=== PATIENT | female | born 1950 | race Caucasian/White ===

== ENCOUNTER 2018-08-19 15:55 | Outpatient (REF) | payer MEDICARE, MEDICAID, SELFPAY | END 2018-08-19 16:15 | LOC: NCHCN 15:55 | PROVIDERS: PCP Family Medicine; Visit Provider Physician Assistant Medical | DX: N39.0 Urinary tract infection, site not specified (principal) | CPT/HCPCS: 87077; 87086; 87186 ==

== ENCOUNTER 2018-09-16 14:46 | Outpatient (REF) | payer MEDICARE, MEDICAID, SELFPAY | END 2018-09-16 15:06 | LOC: NCHCN 14:46 | PROVIDERS: PCP Family Medicine; Visit Provider Physician Assistant Medical | DX: L02.92 Furuncle, unspecified (principal) | CPT/HCPCS: 87077; 87070; 87186; 87205 ==

== ENCOUNTER 2018-10-10 13:16 | Outpatient (REF) | payer MEDICARE, MEDICAID, SELFPAY ==
[2018-10-10 20:25] LABS: Anion Gap 7.7 mmol/L (3-11); BUN 13 mg/dL (7-18); CO2 28.3 mmol/L (21.0-32.0); CREATININE 0.67 mg/dL (0.55-1.02); Calcium 8.9 mg/dL (8.5-10.1); Chloride 103 mmol/L (98-107); Glucose 88 mg/dL (70-100); Potassium 4.4 mmol/L (3.5-5.1); Sodium 139 mmol/L (136-145)
== END 2018-10-10 13:36 ==
LOC: NCHCN 13:16
PROVIDERS: PCP Family Medicine; Visit Provider Physician Assistant Medical
DX: E03.9 Hypothyroidism, unspecified (principal); I10 Essential (primary) hypertension; R53.83 Other fatigue
CPT/HCPCS: 80048; 84443

== ENCOUNTER 2019-12-15 15:48 | Outpatient (CLI) | payer OTHER, SELFPAY ==
--- NOTE | 2019-12-15 | DI.RAD_ITS ---
EXAM: XR SHOULDER RT COMPLETE 2+V CLINICAL HISTORY: RT SHOULDER PAIN M25.511. TECHNIQUE: 2D digital imaging was performed. COMPARISON: No exams were available for comparison FINDINGS: Mild hypertrophic changes are seen at the acromioclavicular joint and the greater tuberosity. The gl enohumeral joint is well maintained. The bones are intact and normally mineralized. The soft tissue s are unremarkable. IMPRESSION: Degenerative changes of the right shoulder. DATA REPOSITORY: RADIATION DOSE DELIVERED:
== END 2019-12-15 16:08 ==
PROVIDERS: PCP Family Medicine; Visit Provider Physician Assistant Medical
DX: M25.511 Pain in right shoulder (principal); M19.011 Primary osteoarthritis, right shoulder
CPT/HCPCS: 73030

== ENCOUNTER 2020-01-26 11:12 | Outpatient (CLI) | payer OTHER, SELFPAY ==
--- NOTE | 2020-01-26 11:00 | DI.RAD_ITS ---
EXAM: XR SHOULDER RT 1V CLINICAL HISTORY: right shoulder pain. TECHNIQUE: 2D digital imaging was performed. COMPARISON: CR XR SHOULDER RT COMPLETE 2+V from 12/15/2019 FINDINGS: Single frontal view of the right shoulder was obtained. Comparison is 12/15/2019. There has been no change in alignment of the shoulder. Stable degenerative changes are seen at the acromioclavicular j oint and glenohumeral joint. Soft tissues are grossly unremarkable. IMPRESSION: Limited examination of the right shoulder. No gross abnormality. DATA REPOSITORY: RADIATION DOSE DELIVERED:
== END 2020-01-26 11:32 ==
PROVIDERS: PCP Family Medicine; Referring Provider Physician Assistant Medical; Visit Provider Student in an Organized Health Care Education/Training Program
DX: M25.511 Pain in right shoulder (principal); M75.01 Adhesive capsulitis of right shoulder; M75.51 Bursitis of right shoulder
CPT/HCPCS: 99203; 73020

== ENCOUNTER 2020-02-03 01:40 | Outpatient (CLI) | payer OTHER, SELFPAY ==
--- NOTE | 2020-02-03 06:15 | DI.MRI_ITS ---
EXAM: MR UPPER JOINT RT WO CLINICAL HISTORY: Profound weakness loss AROM,BURSITIS,ADHESIVE CAPSULITIS,TENDONITIS,. TECHNIQUE: Multiplanar multisequence MRI was performed. COMPARISON: December 04 plain films. FINDINGS: The exam is mildly limited by patient motion. Bones:There is no fracture or contusion pattern. The AC joint shows hypertrophic changes with apparen t mild impingement on the supraspinatus muscle. There is no significant muscle atrophy. There is flu id in the subacromial, subcoracoid bursa. Rotator Cuff: There is a full-thickness tear seen of the supraspinatus tendon with slight retraction of the anterio r portion. Infraspinatus tendon shows mild edema but no focal tear.. The subscapularis and teres mi nor are normal. The biceps tendon is intact. There are degenerative changes of the glenoid, greatest antro inferiorly where there are several small subchondral cysts. No gross labral tear is seen. IMPRESSION: Full-thickness tear of the supraspinatus tendon with mild retraction. Infra spinatus tendonitis. DATA REPOSITORY:
== END 2020-02-03 02:00 ==
PROVIDERS: PCP Family Medicine; Visit Provider Student in an Organized Health Care Education/Training Program
DX: M75.81 Other shoulder lesions, right shoulder (principal); M75.101 Unspecified rotator cuff tear or rupture of right shoulder, not specified as traumatic
CPT/HCPCS: 73221

== ENCOUNTER 2020-02-17 14:29 | Outpatient (CLI) | payer OTHER, SELFPAY ==
--- NOTE | 2020-02-17 14:32 | DI.RAD_ITS ---
EXAM: XR CERVICAL SP BARKER TRAUMA 2-3V CLINICAL HISTORY: right shoulder pain. TECHNIQUE: 2D digital imaging was performed. COMPARISON: No exams were available for comparison FINDINGS: This is a limited examination with only AP and lateral views obtained. There is straightening of the normal cervical lordosis. Disc fusion is seen at C3-C4. Anterior cervical disc fusion is seen from C5 through T1. Degenerative changes of the facets are seen particularly on the left at C2-C3. No a cute fracture or subluxation is identified. The prevertebral soft tissues are unremarkable. IMPRESSION: 1. Postsurgical changes in the cervical spine. 2. Degenerative changes in the cervical spine. DATA REPOSITORY: RADIATION DOSE DELIVERED:
== END 2020-02-17 14:49 ==
PROVIDERS: PCP Family Medicine; Referring Provider Family Medicine; Visit Provider Student in an Organized Health Care Education/Training Program
DX: M47.812 Spondylosis without myelopathy or radiculopathy, cervical region (principal); Z98.890 Other specified postprocedural states; M75.51 Bursitis of right shoulder; M75.101 Unspecified rotator cuff tear or rupture of right shoulder, not specified as traumatic; M75.21 Bicipital tendinitis, right shoulder; M47.12 Other spondylosis with myelopathy, cervical region
CPT/HCPCS: 99214; 72040

== ENCOUNTER 2020-03-11 04:00 | Outpatient (CLI) | payer OTHER, SELFPAY ==
--- NOTE | 2020-03-11 07:45 | DI.MRI_ITS ---
EXAM: MR CERVICAL SPINE WO CLINICAL HISTORY: Failed conservative measures progressive myelopathY,M47.12, recent fall TECHNIQUE: Multiplanar multisequence MRI of the cervical spine was performed without intravenous con trast. COMPARISON: MR MRI - CERVICAL SPINE WO CONT from 01/10/2016 CR XR CERVICAL SP BARKER TRAUMA 2-3V from 02/17/2020 FINDINGS: Fusion hardware is seen at the C3-4 level as well as from the C5 through T1 levels. The cord signal i s normal. C2-3 level shows facet joint degenerative changes on the left. There is no disc bulging. The C3-4 lev el shows anterior fusion hardware. There is no significant narrowing of the central canal. At C4-5, there are disc osteophytes projecting circumferentially causing narrowing of the AP dimensio n of the central canal as well as bilateral neural foraminal narrowing, right greater than left. The AP dimension of the canal is reduced to 6 millimeters. At the C5-6 level, there are osteophytes projecting toward the left, also causing significant narrowi ng of the AP dimension of the canal and severe left neural foraminal narrowing. At C6-7, there are osteophytes causing left neural foraminal narrowing but no significant narrowing o f the central canal. There is mild neural foraminal narrowing at C7-T1. There are osteophytes and mild disc bulging at T1- 2 but no significant narrowing of the central canal. There is mild bilateral neural foraminal narrowi ng. IMPRESSION: Severe degenerative disc changes at C 4-5 causing narrowing of the central spinal canal as well as bi lateral neural foramen. Postsurgical changes and degenerative changes are noted at the remaining leve ls. DATA REPOSITORY:
== END 2020-03-11 04:20 ==
PROVIDERS: PCP Family Medicine; Visit Provider Student in an Organized Health Care Education/Training Program
DX: M47.12 Other spondylosis with myelopathy, cervical region (principal)
CPT/HCPCS: 72141

== ENCOUNTER → 2020-03-30 09:49 | Outpatient (BNVA) | payer OTHER, SELFPAY | PROVIDERS: PCP Family Medicine; Referring Provider Family Medicine; Visit Provider Student in an Organized Health Care Education/Training Program | DX: M19.011 Primary osteoarthritis, right shoulder (principal); M47.12 Other spondylosis with myelopathy, cervical region; M75.21 Bicipital tendinitis, right shoulder; M75.101 Unspecified rotator cuff tear or rupture of right shoulder, not specified as traumatic; M75.51 Bursitis of right shoulder | CPT/HCPCS: 99214 ==

== ENCOUNTER → 2020-04-05 13:39 | Outpatient (BNVA) | payer OTHER, SELFPAY | PROVIDERS: PCP Family Medicine; Referring Provider Student in an Organized Health Care Education/Training Program; Visit Provider Psychiatry & Neurology Neurology | DX: M19.011 Primary osteoarthritis, right shoulder (principal); M47.12 Other spondylosis with myelopathy, cervical region; G56.01 Carpal tunnel syndrome, right upper limb; S46.011A Strain of muscle(s) and tendon(s) of the rotator cuff of right shoulder, initial encounter; W19.XXXA Unspecified fall, initial encounter; G56.21 Lesion of ulnar nerve, right upper limb | CPT/HCPCS: 95886; 95909; 99204; 99215 ==

== ENCOUNTER 2020-04-18 07:29 | Outpatient (CLI) | payer OTHER, SELFPAY ==
[2020-04-19 15:32] LABS: SARS-CoV-2 RNA Not Detected (NotDetected); SARS-CoV-2 RNA Source Nasal/Nares
== END 2020-04-18 07:49 ==
PROVIDERS: PCP Family Medicine; Visit Provider Student in an Organized Health Care Education/Training Program
DX: Z01.818 Encounter for other preprocedural examination (principal); Z11.59 Encounter for screening for other viral diseases; M75.21 Bicipital tendinitis, right shoulder; M75.101 Unspecified rotator cuff tear or rupture of right shoulder, not specified as traumatic; M75.51 Bursitis of right shoulder
CPT/HCPCS: U0003

== ENCOUNTER 2020-04-21 09:50 | Day surgery (SDC) | payer OTHER, SELFPAY ==
[2020-04-21] VITALS (11 sets, daily range): BP systolic 100–145; BP diastolic 44–96; PULSE 61–96; RESP 15–25; TEMP 36.2–36.8; O2SAT 94–100
[2020-04-21] MEDS: Lactated Ringers 1,000 ML 100 ML IV (11:04)
[2020-04-21] MEDS: ceFAZolin 2 GM/50 ML BAG IVPB (14:15)
[2020-04-21] MEDS: EPINEPHrine 30 MG/30 ML VIAL (16:40)
--- NOTE | 2020-04-21 16:43 | PDOC.DSDIS_ITS ---
Discharge Plan Disposition Patient Disposition: HOME Condition: Stable Discharge Details Reason For Visit: Right shoulder surgery Attending Provider: Melvin Mathews Primary Care Provider: Laura Vargas V Home Meds and New Rx's Prescriptions: New aspirin 81 mg tablet,delayed release (DR/EC) 81 mg PO DAILY 14 Days Qty: 14 RF: 0 naproxen 250 mg tablet 250 - 500 mg PO BID PRN (Reason: Moderate pain or swelling) Qty: 60 RF: 0 tramadol 50 mg Tablet 50 mg PO Q8H PRN PRN (Reason: severe pain) Qty: 18 RF: 0 ondansetron 4 mg tablet,disintegrating 4 mg PO Q6H PRN (Reason: nausea or vomiting) Qty: 5 RF: 0 Continued atorvastatin [Lipitor] 40 MG tablet 40 mg PO DAILY RF: 0 omeprazole 20 MG capsule,delayed release(DR/EC) 20 mg PO DAILY RF: 0 levothyroxine 88 mcg tablet 100 mcg PO DAILY RF: 0 lisinopril 20 MG tablet 20 mg PO DAILY RF: 0 citalopram 20 MG tablet 1 tab PO DAILY RF: 0 gabapentin 300 MG capsule 1 tab PO BID RF: 0 aspirin 81 MG tablet,chewable 81 mg PO DAILY RF: 0 Discontinued nabumetone 500 MG tablet 500 mg PO BID PRNRF: 0 Discharge Instructions Additional Instructions: Surgery: Shoulder arthroscopy with rotator cuff repair, biceps tenotomy, extensive debridement, distal clavicle excision, and subacromial decompression. Activity: You should keep your arm at your side in a neutral position at all t imes except for physical therapy. Do not try to lift or raise your arm using your own muscles. You should use the sling whenever you are out of the house. You may have to adjust the abduction pillow or remove it for comfort. At home it is best to remove the sling and rest the arm on a pillow at your side or support the operative side with your other hand. You may allow the arm to dangle at your side. A physical therapy prescription will be sent electronically to start in about 2 weeks. Prescriptions: Aspirin 81 mg take 1 daily to prevent a blood clot for 2 weeks Naproxen 250 mg take 1-2 every 12 hours with a meal as needed for moderate pain Tramadol 50 mg take 1-2 every 4-6 hours as needed for severe pain You may use zpur-lsu-nynzldm Tylenol (acetaminophen) as needed for mild pain. These pain medications may be taken all at once or in different combinations as needed. Ondansetron (Zofran) 4 mg take 1 orally dissolving tablet every 6 hours as needed for nausea or vomiting Also, recommend Colace (docusate) as a stool softener as surgery and pain medicine cause constipation. Dressings: Remove shoulder bandage after 3 days. Leave the sticky Steri-Strips in place until they fall off or remove them after you shower. Cover the incisions with Band-Aids or leave them open to air. You may shower after 5 days. Follow-up: 10-[address] Mathews You may take off the leg compression stockings this evening at home. You may also leave them on a few days longer if you have a history of leg swelling or edema. Let us know right away if you develop any redness, drainage, fevers, chest pain, or trouble breathing. Do not drink alcohol or drive for at least 24 hours after anesthesia. Please call the office during business hours with any questions or concerns. Referrals: Melvin Mathews MD [ [facility] STAFF PHYSICIAN] - Discharge Orders Discharge Orders: Discharge Order (Routine); Ordered 04/21/20 Ordered By: Melvin Mathews DS: Diagnosis Discharge Diagnosis (1) Rotator cuff tear, right: Status: Acute (2) Tendonitis of long head of biceps brachii of right shoulder: Status: Acute (3) Arthritis of right acromioclavicular joint: Status: Acute (4) Bursitis of right shoulder: Status: Acute
--- NOTE | 2020-04-21 16:57 | ROE_ITS ---
Date of service: 04/21/20 Time of Service: 16:43 Operative Note Operative Note DATE OF PROCEDURE: 04/21/20 PRE-OP DIAGNOSIS: Right: 1. Rotator cuff tear 2. LHB tendinopathy 3. Bursitis 4. AC joint arthritis POST-OP DIAGNOSIS: other Right: 1. Rotator cuff tear 2. LHB tendinopathy with SLAP tear 3. Bursitis 4. AC joint arthritis 5. External rotation/anterior shoulder contracture PROCEDURE: Right: 1. Rotator cuff repair, CPT# 19210. This involved repair of the supraspinatus using anchors and sutures to reattach the rotator cuff back to the footprint of the greater tuberosity. 2. Extensive debridement, CPT# 49620. This involved using arthroscopic hand instruments, power instruments, and radiofrequency instruments to release to release the long head of the biceps tendon and debride areas of labral tearing, synovitis, and capsule thickening contracture within the glenohumeral joint anteriorly including release of the MGHL, superiorly and posteriorly. 3. Arthroscopic distal clavicle excision, CPT# 60733. This involved arthroscopically exposing the underside of the acromioclavicular joint, smoothing out bone spurs, and using a hung to remove approximately 5 mm of the distal clavicle so there was no bone left engaging the acromion. 4. Subacromial decompression with partial acromioplasty, CPT# 95811. This involved using arthroscopic power instruments and a radiofrequency wand to complete a bursectomy and remove bone spurs on the undersurface of the acromion. The marketing assistant retail division was medically required in order to help assist in techniques above, which require positioning the arm, holding the arthroscope, and manipulating multiple instruments and sutures at the same time. This cannot be done without the help of an experienced marketing assistant retail division. SURGEON: Melvin Mathews TELEVISION ANCHOR: Kadie Crowe ANESTHESIA: GETA and regional ESTIMATED BLOOD LOSS: 5 PATHOLOGY: none sent COMPLICATIONS: None Patient was transported to: PACU Patient's condition: stable Implants: Arthrex: 4.75mm SwiveLocks x 4 Indications: The patient was diagnosed with the above conditions and approp riately indicated for surgical intervention. Please see complete medical record for details. Findings: Exam under anesthesia: Nearly full internal rotation and forward elevation. Limited external rotation in adduction to about 25-30 degrees that had a firm endpoint and was not amenable to manipulation. Glenohumeral joint: Profound synovitis and [facility] L, capsule, and labral tearing, and biceps tendon disruption all anteriorly with a likely rotator interval injury. Intact articular rotator cuff. Grade 1 may be small areas grade 2 glenohumeral chondromalacia. Displaced SLAP tear superiorly traversing posteriorly. Moderate synovitis posteriorly. Subacromial space: Significant bursitis. Significant undersurface acromial bone spur. Moderate engaging distal clavicle acromion bone spurs. Lateral anterior approximately 80% bursal supraspinatus tear with significant medial delamination posteriorly. Procedure Description: In the operating room, general anesthesia was induced. Bilateral shoulders were examined. The patient was positioned in the beachchair position. Due to the patient's cervical spine pathology, extra positioning help and care was taken to maintain the cervical spine and the patient's neutral position in the head was held in the soft sugar operator head with extra secure fixation. All bony prominences were well-padded. Preoperative antibiotics were administered. The shoulder was prepped and draped in the usual sterile fashion. The correct patient, procedure, and side of the procedure were all verified prior to incision. Starting through the posterior portal a standard complete diagnostic arthroscopy was performed of the glenohumeral joint including inspection of the long head of the biceps, anterior and superior labrum, subscapularis tendon, supraspinatus and infraspinatus tendons, and axillary recess. The glenoid and humeral head cartilage as well as the posterior labrum were inspected from an anterior viewing portal. Significant findings and interventions noted above. The biceps tendon was released from the superior labrum using arthroscopic scissors. Following anterior capsular release external rotation was easily brought past 60 degrees. Starting through the posterior portal, the arthroscope was directed into the subacromial space. A lateral 50 yard line lateral portal was created. A combination of power instruments and a radiofrequency ablator were used to debride bursitis anteriorly, posteriorly, and laterally as well as expose and smooth bone spurring on the undersurface of the acromion. The coracoacromial ligament was partially released. The bursectomy was completed viewing laterally and working from posteriorly and the rotator cuff was thoroughly inspected with findings noted above. The anterior portal was redirected towards the undersurface of the AC joint. A shaver and electrocautery device were used to clear soft tissue from the undersurface of the AC joint. A hung was then inserted and used to remove the distalmost 5 mm of the distal clavicle. Care was taken to alternate between working through the anterior portal and viewing through the anterior portal to ensure that proper amount of bone was removed and there was no engaging bone left behind especially superiorly. Cannulas were inserted at the superior posterior lateral and anterior margins of the acromion as well as at the lateral 50 yard line portal. The rotator cuff tear was inspected and debrided of frayed tissue at the margins exposing a majority thickness moderately sized supraspinatus tear with significant delamination posteriorly. The greater was tuberosity cleared of fibrous tissue over the exposed footprint leaving intact supraspinatus anteriorly, medially, and posteriorly as superior cuff of tissue. A punch was used to localize placement the first medial row anchor starting anteriorly that was loaded with fiber tape. A self retrieving suture passer was used to pass each ends of this fiber tape through all layers of the port tendon at the appropriate level medially. This process was repeated for the second posterior medial row anchor taking care to capture the significantly delaminated posterior superior layer. The rotator cuff tear was provisionally reduced through the lateral rigid cannula. Lastly, a fiber tape from the anterior and posterior anchors was brought to a posterior lateral row anterior anchor and this process repeated for the anterior lateral row posterior anchor achieving FiberTape compression over the reduced bursal rotator cuff repair. The repair was inspected through shoulder range of motion and found to be stable with secure fixation. There was additional fraying and partial-thickness tearing of the rotator cuff far anteriorly about the rotator interval that was not incorporated into the repair in order to prevent postoperative stiffness loss of external rotation. The shoulder was drained of arthroscopic fluid. All portal sites were copiously irrigated. These incisions were closed using 3-0 Monocryl in a buried fashion, covered with Mastisol, Steri-Strips, Xeroform, dry gauze, and ABDs. The dressings were covered and secured with Medipore tape. The operative extremity was placed into a sling for immobilization. The patient awoke from anesthesia without complication and was transferred to the recovery room in a stable condition.
[2020-04-21] MEDS: fentaNYL 100 MCG/2 ML VIAL IVP (17:22)
[2020-04-21] MEDS: traMADol 50 MG TAB PO (18:48)
--- NOTE | 2020-04-21 18:55 | NUR.NOTE ---
Nursing Note: Patient arrived from PACU to Room 221 via stretcher on 04/21/2020 at 1759 s/p right shoulder surgery. Hand off report from Kwesi Lamas RN. All questions answered. Pt alert and oriented x3. Pt reports right shoulder pain 09/24. L hand IV patent and infusing LR. Vital signs stable See DSU flowsheet
== END 2020-04-21 19:58 | disposition home or self-care (01) ==
PROVIDERS: PCP Family Medicine; Visit Provider Student in an Organized Health Care Education/Training Program
PROC: (CPT 29827; principal; 2020-04-21 12:30)
PROC: (CPT 23430; 2020-04-21 12:30)
PROC: (CPT 23120; 2020-04-21 12:30)
DX: S46.011A Strain of muscle(s) and tendon(s) of the rotator cuff of right shoulder, initial encounter; S43.431A Superior glenoid labrum lesion of right shoulder, initial encounter; M75.21 Bicipital tendinitis, right shoulder; M19.011 Primary osteoarthritis, right shoulder; M75.51 Bursitis of right shoulder; X58.XXXA Exposure to other specified factors, initial encounter; M24.511 Contracture, right shoulder
CPT/HCPCS: 29827; 29823; 29824; 29826; 76942; J0690; J1100; J1885; J2001; J2250; J2370; J2405; J2704; J3010; L3650

== ENCOUNTER → 2020-05-03 09:17 | Outpatient (BNVA) | payer OTHER, SELFPAY | PROVIDERS: PCP Family Medicine; Referring Provider Family Medicine; Visit Provider Student in an Organized Health Care Education/Training Program | DX: Z47.89 Encounter for other orthopedic aftercare (principal); M19.011 Primary osteoarthritis, right shoulder; M47.12 Other spondylosis with myelopathy, cervical region; M75.21 Bicipital tendinitis, right shoulder; M75.51 Bursitis of right shoulder ==

== ENCOUNTER → 2020-06-22 08:29 | Outpatient (BNVA) | payer OTHER, SELFPAY | PROVIDERS: PCP Family Medicine; Referring Provider Family Medicine; Visit Provider Student in an Organized Health Care Education/Training Program | DX: Z47.89 Encounter for other orthopedic aftercare (principal); M75.21 Bicipital tendinitis, right shoulder; M19.011 Primary osteoarthritis, right shoulder; M47.12 Other spondylosis with myelopathy, cervical region; M75.51 Bursitis of right shoulder ==

== ENCOUNTER 2020-08-01 16:24 | Outpatient (REF) | payer OTHER, SELFPAY ==
[2020-08-01 16:07] LABS: Anion Gap 5.6 mmol/L (3-11); BUN 15 mg/dL (7-18); CO2 29.4 mmol/L (21.0-32.0); CREATININE 0.7 mg/dL (0.55-1.02); Calcium 9.3 mg/dL (8.5-10.1); Calculated LDL 260 mg/dL (<100); Chloride 103 mmol/L (98-107); Cholesterol 343 mg/dL (<200); Glucose 84 mg/dL (74-106); HDL Cholesterol 48 mg/dL (40-60); Potassium 4.3 mmol/L (3.5-5.1); Sodium 138 mmol/L (136-145); TSH 2.56 uIU/mL (0.36-3.74); Triglyceride 175 mg/dL (<150)
== END 2020-08-01 16:25 | disposition home or self-care (01) ==
LOC: NCHCN 16:24
PROVIDERS: PCP Family Medicine; Visit Provider Physician Assistant Medical
DX: E78.5 Hyperlipidemia, unspecified (principal)
CPT/HCPCS: 80048; 80061; 84443

== ENCOUNTER → 2020-08-17 08:10 | Outpatient (BNVA) | payer OTHER, SELFPAY | PROVIDERS: PCP Family Medicine; Referring Provider Family Medicine; Visit Provider Student in an Organized Health Care Education/Training Program | DX: Z47.89 Encounter for other orthopedic aftercare (principal); M75.21 Bicipital tendinitis, right shoulder; M19.011 Primary osteoarthritis, right shoulder; M75.51 Bursitis of right shoulder | CPT/HCPCS: 99213 ==

== ENCOUNTER 2021-07-26 15:26 | Outpatient (REF) | payer OTHER, SELFPAY ==
[2021-07-26 21:44] LABS: ALT 29 U/L (14-59); AST 23 U/L (15-37); Albumin 3.7 g/dL (3.4-5.0); Alkaline Phosphatase 77 U/L (46-116); Anion Gap 9.1 mmol/L (3-11); BUN 14 mg/dL (7-18); Bilirubin, Total 0.2 mg/dL (0.2-1.0); CO2 26.9 mmol/L (21.0-32.0); CREATININE 0.7 mg/dL (0.55-1.02); Calcium 9.8 mg/dL (8.5-10.1); Calculated LDL 117 mg/dL (<100); Chloride 106 mmol/L (98-107); Cholesterol 215 mg/dL (<200); Glucose 90 mg/dL (74-106); HDL Cholesterol 57 mg/dL (40-60); Magnesium 2.1 mg/dL (1.8-2.4); Potassium 4.3 mmol/L (3.5-5.1); Sodium 142 mmol/L (136-145); TSH 3.43 uIU/mL (0.36-3.74); Total Protein 7.2 g/dL (6.4-8.2); Triglyceride 206 mg/dL (<150)
== END 2021-07-26 15:27 | disposition home or self-care (01) ==
LOC: NCHCN 15:26
PROVIDERS: PCP Family Medicine; Visit Provider Physician Assistant Medical
DX: E78.5 Hyperlipidemia, unspecified (principal); I10 Essential (primary) hypertension; E03.9 Hypothyroidism, unspecified
CPT/HCPCS: 80053; 80061; 83735; 84443

== ENCOUNTER 2022-01-09 15:49 | Outpatient (REF) | payer OTHER, SELFPAY ==
[2022-01-09 16:13] LABS: HCT 44.9 % (36.0-46.0); HGB 14.7 g/dL (11.2-15.7); MCH 30.9 pg (27.0-33.0); MCHC 32.7 % (32.0-36.0); MCV 94 fL (80-95); MPV 10.4 fL (8.0-11.0); Platelet Count 386 10^3/uL (130-400); RBC 4.76 10^6/uL (3.93-5.22); RDW 12.8 % (11.7-14.6); RDW-SD 44.5 fL; WBC 7.32 10^3/uL (4.4-10.8)
[2022-01-09 16:33] LABS: FREE T4 1.15 ng/dL (0.76-1.46); TSH 6.53 uIU/mL (0.36-3.74)
[2022-01-09 17:36] LABS: Hemoglobin A1C 5.8 % (<5.7)
[2022-01-09 22:07] LABS: T3, Total 105 ng/dL (97-169)
== END 2022-01-09 15:50 | disposition home or self-care (01) ==
LOC: NCHCN 15:49
PROVIDERS: PCP Family Medicine; Visit Provider Physician Assistant Medical
DX: R53.83 Other fatigue (principal)
CPT/HCPCS: 85027; 83036; 84439; 84443; 84480

== ENCOUNTER 2022-03-12 07:55 | Outpatient (REF) | payer MEDICARE, SELFPAY ==
[2022-03-12 16:33] LABS: TSH 5.85 uIU/mL (0.36-3.74)
== END 2022-03-12 07:56 | disposition home or self-care (01) ==
LOC: NCHCN 07:55
PROVIDERS: PCP Family Medicine; Visit Provider Physician Assistant Medical
DX: E03.9 Hypothyroidism, unspecified (principal)
CPT/HCPCS: 84443

== ENCOUNTER 2022-05-11 15:51 | Outpatient (REF) | payer MEDICARE, SELFPAY ==
[2022-05-11 19:08] LABS: Hemoglobin A1C 5.7 % (<5.7)
[2022-05-11 19:34] LABS: ALT 28 U/L (14-59); AST 26 U/L (15-37); Albumin 3.8 g/dL (3.4-5.0); Alkaline Phosphatase 78 U/L (46-116); Anion Gap 8.7 mmol/L (3-11); BUN 20 mg/dL (7-18); Bilirubin, Total 0.4 mg/dL (0.2-1.0); CO2 25.3 mmol/L (21.0-32.0); CREATININE 0.8 mg/dL (0.55-1.02); Calcium 9.4 mg/dL (8.5-10.1); Calculated LDL 134 mg/dL (<100); Chloride 101 mmol/L (98-107); Cholesterol 218 mg/dL (<200); Estimated GFR 79.71 (mL/min/1.73m2); Glucose 91 mg/dL (74-106); HDL Cholesterol 61 mg/dL (40-60); Sodium 135 mmol/L (136-145); TSH 4.88 uIU/mL (0.36-3.74); Total Protein 7.9 g/dL (6.4-8.2); Triglyceride 118 mg/dL (<150); Vitamin B12 419 pg/mL (193-986)
== END 2022-05-11 15:52 | disposition home or self-care (01) ==
LOC: NCHCN 15:51
PROVIDERS: PCP Family Medicine; Visit Provider Physician Assistant Medical
DX: G62.9 Polyneuropathy, unspecified (principal)
CPT/HCPCS: 80053; 80061; 82607; 83036; 84443

== ENCOUNTER 2022-06-26 14:08 | Outpatient (REF) | payer MEDICARE, SELFPAY | END 2022-06-26 14:09 | disposition home or self-care (01) | LOC: NCHCN 14:08 | PROVIDERS: PCP Family Medicine; Visit Provider Family Medicine | DX: R31.9 Hematuria, unspecified (principal) | CPT/HCPCS: 87086 ==

== ENCOUNTER 2022-08-13 09:01 | Outpatient (REF) | payer MEDICARE, SELFPAY ==
[2022-08-13 16:44] LABS: ALT 27 U/L (14-59); AST 20 U/L (15-37); Albumin 3.6 g/dL (3.4-5.0); Alkaline Phosphatase 81 U/L (46-116); Anion Gap 4.4 mmol/L (3-11); BUN 14 mg/dL (7-18); Bilirubin, Total 0.3 mg/dL (0.2-1.0); CO2 29.6 mmol/L (21.0-32.0); CREATININE 0.7 mg/dL (0.55-1.02); Calcium 9.8 mg/dL (8.5-10.1); Calculated LDL 85 mg/dL (<100); Chloride 106 mmol/L (98-107); Cholesterol 160 mg/dL (<200); Estimated GFR 92.98 (mL/min/1.73m2); Glucose 104 mg/dL (74-106); HDL Cholesterol 55 mg/dL (40-60); Potassium 4.5 mmol/L (3.5-5.1); Sodium 140 mmol/L (136-145); Total Protein 7.5 g/dL (6.4-8.2); Triglyceride 100 mg/dL (<150)
[2022-08-13 16:52] LABS: TSH < 0.01 uIU/mL (0.36-3.74)
== END 2022-08-13 09:02 | disposition home or self-care (01) ==
LOC: NCHCN 09:01
PROVIDERS: PCP Family Medicine; Visit Provider Family Medicine
DX: I10 Essential (primary) hypertension (principal); E78.5 Hyperlipidemia, unspecified; E03.9 Hypothyroidism, unspecified
CPT/HCPCS: 80053; 80061; 84443

== ENCOUNTER 2022-10-11 17:38 | Outpatient (REF) | payer OTHER, SELFPAY ==
[2022-10-11 16:23] LABS: FREE T4 1.71 ng/dL (0.76-1.46); TSH 0.01 uIU/mL (0.36-3.74)
== END 2022-10-11 17:39 | disposition home or self-care (01) ==
LOC: NCHCN 17:38
PROVIDERS: PCP Family Medicine; Visit Provider Physician Assistant Medical
DX: E03.9 Hypothyroidism, unspecified (principal)
CPT/HCPCS: 84439; 84443

== ENCOUNTER 2022-12-05 01:52 | Outpatient (CLI) | payer OTHER, SELFPAY ==
--- NOTE | 2022-12-05 | DI.MAMMO_ITS ---
Exam(s) MAMMO SCREENING EXAM: MAMMO SCREENING CLINICAL HISTORY: SCREENING, Z12.31 TECHNIQUE: Bilateral full field digital CC and MLO mammographic images were obtained with 3D tomosyn thesis and utilizing computer aided detection (CAD). COMPARISON: Available for comparison. FINDINGS: Masses/Architectural Distortion: None seen. Microcalcifications: No suspicious pleomorphic-type are seen. Skin Thickening/Nipple Retraction: None. IMPRESSION: 1. No significant interval change with no specific features of malignancy noted. 2. Unless there is more urgent need, screening mammography is recommended, as per [place] guidelines. BI-RADS Category 1 - Negative Breast Density - Category A - Almost entirely fatty Breast density category C or D implies that the patient has dense breast tissue. Dense breast tissue is very common and is not abnormal but dense breast tissue can make it harder to find cancer on a ma mmogram. Also, dense breast tissue may increase their breast cancer risk. This information about the result of the mammogram report was provided to the patient to raise their awareness. Use this report when you speak with the patient about their risks for breast cancer, which includes their family hist ory. At that time, you may recommend for more screening tests (Ultrasound or MRI) as they might be us eful based on their risk. A negative radiographic report should not delay biopsy if a dominant or clinically suspicious mass is present. Up to ten percent of cancers are not identified on mammography. A negative report may reinforce clinical impression. Adenosis and dense breasts may obscure an underlying neoplasm. False positive reports average 6 to 10%. Patient will receive a letter notifying them of these results.
== END 2022-12-05 02:12 ==
LOC: DI 01:53
PROVIDERS: PCP Family Medicine; Visit Provider Physician Assistant Medical
DX: Z12.31 Encounter for screening mammogram for malignant neoplasm of breast (principal)
CPT/HCPCS: 77063; 77067

== ENCOUNTER 2023-01-17 04:01 | Outpatient (CLI) | payer OTHER, SELFPAY ==
[2023-01-17 12:16] LABS: TSH 0.09 uIU/mL (0.36-3.74)
== END 2023-01-17 04:02 | disposition home or self-care (01) ==
PROVIDERS: PCP Family Medicine; Visit Provider Physician Assistant Medical
DX: E03.9 Hypothyroidism, unspecified (principal); I10 Essential (primary) hypertension; E78.5 Hyperlipidemia, unspecified
CPT/HCPCS: 36415; 84443

== ENCOUNTER 2023-03-18 10:46 | Outpatient (CLI) | payer OTHER, SELFPAY ==
--- NOTE | 2023-03-18 10:30 | DI.RAD_ITS ---
Exam(s) XR KNEE RT 3V AP,LAT,ERIC EXAM: XR KNEE RT 3V AP,LAT,ERIC CLINICAL HISTORY: RIGHT KNEE PAIN. TECHNIQUE: 2D digital imaging was performed. COMPARISON: No exams were available for comparison FINDINGS: 3 views No evidence of fracture. There is significant narrowing of the medial compartment of the knee. Mild degenerative changes in the lateral compartment. Significant degenerative changes in the patellofem oral compartment. In addition, there are calcified loose bodies superolaterally which appear to be i n the lateral aspect of the suprapatellar bursa. The larger of these 2 calcific densities measures 1 .6 x 0.6 cm. The smaller measures 1.3 x 0.7 cm. IMPRESSION: Degenerative changes. Calcified bodies in the suprapatellar bursa. DATA REPOSITORY: RADIATION DOSE DELIVERED:
--- NOTE | 2023-03-18 10:45 | DI.RAD_ITS ---
Exam(s) XR HIP RT COMPLETE AP PELVIS EXAM: XR HIP RT COMPLETE AP PELVIS CLINICAL HISTORY: RIGHT KNEE PAIN. TECHNIQUE: 2D digital imaging was performed. COMPARISON: No exams were available for comparison FINDINGS: Two views. No evidence of pelvic nor hip fracture. No hip joint space narrowing. On the lateral additional lat eral view of the right hip there are small femoral head osteophytes noted. SI joints unremarkable. Degenerative disc disease noted. IMPRESSION: No fractures. Some degenerative change noted in the right hip. DATA REPOSITORY: RADIATION DOSE DELIVERED:
== END 2023-03-18 10:47 | disposition home or self-care (01) ==
PROVIDERS: PCP Family Medicine; Referring Provider Family Medicine; Visit Provider Student in an Organized Health Care Education/Training Program
DX: M25.561 Pain in right knee (principal); M17.11 Unilateral primary osteoarthritis, right knee; M16.11 Unilateral primary osteoarthritis, right hip; M47.816 Spondylosis without myelopathy or radiculopathy, lumbar region; M47.812 Spondylosis without myelopathy or radiculopathy, cervical region
CPT/HCPCS: 73562; 99214; 73502

== ENCOUNTER 2023-05-13 03:20 | Outpatient (CLI) | payer OTHER, SELFPAY ==
[2023-05-13 14:40] LABS: HCT 44.6 % (36.0-46.0); HGB 14.1 g/dL (11.2-15.7); MCH 29.9 pg (27.0-33.0); MCHC 31.6 % (32.0-36.0); MCV 95 fL (80-95); MPV 9.9 fL (8.0-11.0); Platelet Count 396 10^3/uL (130-400); RBC 4.72 10^6/uL (3.93-5.22); RDW 13.2 % (11.7-14.6); RDW-SD 46.1 fL; WBC 9.93 10^3/uL (4.4-10.8)
[2023-05-13 15:31] LABS: Anion Gap 8.9 mmol/L (3-11); BUN 18 mg/dL (7-18); CO2 28.1 mmol/L (21.0-32.0); CREATININE 0.9 mg/dL (0.55-1.02); Calcium 9.6 mg/dL (8.5-10.1); Chloride 102 mmol/L (98-107); Estimated GFR 68.77 (mL/min/1.73m2); Glucose 90 mg/dL (74-106); Potassium 3.7 mmol/L (3.5-5.1); Sodium 139 mmol/L (136-145)
== END 2023-05-13 03:21 | disposition home or self-care (01) ==
LOC: LBO 03:20
PROVIDERS: PCP Family Medicine; Visit Provider Student in an Organized Health Care Education/Training Program
DX: M17.11 Unilateral primary osteoarthritis, right knee (principal); Z01.818 Encounter for other preprocedural examination
CPT/HCPCS: 36415; 80048; 85027

== ENCOUNTER 2023-05-13 15:08 | Outpatient (CLI) | payer OTHER, SELFPAY ==
--- NOTE | 2023-05-13 14:45 | DI.RAD_ITS ---
Exam(s) XR STANDING ALIGNMENT XR KNEE RT 1V EXAM: XR STANDING ALIGNMENT and XR knee RT 1 V CLINICAL HISTORY: PREOP RIGHT TKR. TECHNIQUE: 2D digital imaging was performed. Five images were obtained. COMPARISON: CR XR KNEE RT 3V AP,LAT,ERIC from 03/18/2023 CR XR HIP RT COMPLETE AP PELVIS from 03/18/2023 FINDINGS: BONES: The hips are well maintained. Moderately severe degenerative changes are again seen in the ri ght knee with joint space narrowing and osteophytes. The findings are most marked at the patellofemo ral joint. There again seen calcific bodies in the suprapatellar region suggestive of loose bodies. Meku-bd-vfnzlepi degenerative changes are seen in the left knee with joint space narrowing medially and osteophytes laterally. The ankles are well maintained.There is no significant leg length discrep dg. SOFT TISSUE: Normal. IMPRESSION: Osteoarthritis of the knees bilaterally, right greater than left. Loose bodies in the right suprapat ellar joint. DATA REPOSITORY: RADIATION DOSE DELIVERED:
== END 2023-05-13 15:09 | disposition home or self-care (01) ==
LOC: DIORS 15:09
PROVIDERS: PCP Family Medicine; Visit Provider Physician Assistant
DX: M17.11 Unilateral primary osteoarthritis, right knee (principal); Z01.818 Encounter for other preprocedural examination
CPT/HCPCS: 73560; 77073

== ENCOUNTER 2023-05-21 05:57 | Day surgery (SDC) | payer OTHER, SELFPAY ==
[2023-05-21] VITALS (11 sets, daily range): BP systolic 107–148; BP diastolic 55–78; PULSE 62–81; RESP 15–19; TEMP 36.1–36.6; O2SAT 94–98; BMI 30.7
[2023-05-21] MEDS: Acetaminophen 500 MG TAB 1000 MG PO (06:32)
[2023-05-21] MEDS: Gabapentin 300 MG CAP PO (06:32)
[2023-05-21] MEDS: Celecoxib 200 MG CAP 400 MG PO (06:32)
[2023-05-21] MEDS: Lactated Ringers 1,000 ML 80 ML IV (06:55)
--- NOTE | 2023-05-21 07:09 | ANES.PREOP_ITS ---
General Info Date of Service Date Performed: 05/21/23 Height: 5 ft 5 in Weight: 83.9 kg Body Mass Index (BMI): 30.7 Surgical Procedure: Operation Date: 05/21/23 07:55 Proposed Procedure Side Surgeon p Knee Total Arthroplasty, Cementless CR Right Adolfo Patel MD Meds Allergies and Home Medications Allergies Allergy/AdvReac Type Severity Reaction Status Date / Time nickel Allergy Intermediate Skin Rash Verified 05/21/23 06:16 oxycodone Allergy Mild Verified 05/21/23 06:16 Home Medication Medication Instructions Recorded lisinopril 20 mg tablet 20 mg PO DAILY 01/07/13 citalopram 20 mg tablet 1 tab PO DAILY 06/22/13 omeprazole 20 mg capsule,delayed 20 mg PO DAILY 10/25/15 release naproxen 250 mg tablet 250 - 500 mg (1 - 2 x 250 mg) PO 04/21/20 BID PRN Moderate pain or swelling #60 tabs gabapentin 300 mg capsule 300 mg PO QHS 11/06/22 rosuvastatin 20 mg tablet 20 mg PO DAILY 11/06/22 nabumetone 500 mg tablet 500 mg PO BID PRN 03/18/23 levothyroxine 100 mcg capsule 100 mcg PO DAILY 05/13/23 calcium phosphate,dibasic 77 1 tab PO DAILY 05/20/23 mg-vitamin D3 400 unit tablet Current Visit Medications: Current Medications Generic Name Dose Route Start Last Admin Trade Name Freq PRN Reason Stop Dose Admin Acetaminophen 1,000 mg 05/21/23 06:00 05/21/23 06:32 Acetaminophen 500 Mg Tab PO 06/20/23 05:59 1,000 mg PREOP RADHA Administration Celecoxib 400 mg 05/21/23 06:00 05/21/23 06:32 Celecoxib 200 Mg Cap PO 06/20/23 05:59 400 mg PREOP RADHA Administration Gabapentin 300 mg 05/21/23 06:00 05/21/23 06:32 Gabapentin 300 Mg Cap PO 06/20/23 05:59 300 mg PREOP RADHA Administration Tranexamic Acid 1,000 mg/ 60 mls @ 360 mls/hr 05/21/23 06:00 Sodium Chloride IVPB 06/20/23 05:59 PREOP RADHA Ringer's Solution 1,000 mls @ 80 mls/hr 05/21/23 06:00 IV 05/21/23 23:59 INFUSION RADHA Cefazolin Sodium/Dextrose 2 gm in 50 mls @ 100 mls/hr 05/21/23 06:00 Ancef Duplex IVPB 05/21/23 23:59 PREOP RADHA IV Miscellaneous Supplies 1 each 05/21/23 06:00 Iv Access IV 05/21/23 23:59 DIRECTED RADHA Sodium Chloride 0 ml 05/21/23 06:00 Normal Saline Flush 10 Ml Syr IV 05/21/23 23:59 PRN PRN Sodium Chloride 0 ml 05/21/23 06:00 Normal Saline 10 Ml Vial IJ 05/21/23 23:59 DIRECTED PRN Sterile Water 0 ml 05/21/23 06:00 Water,Injection,Sterile 10 Ml Vial IJ 05/21/23 23:59 DIRECTED PRN PFSH Active Problems Active Problems: Problem Status Onset Code Degenerative joint disease of right hip M16.11 Degenerative joint disease of right knee M17.11 Anxiety and depression F41.9, F32.A Prediabetes R73.03 Ulnar neuropathy at elbow of right upper extremity G56.21 Carpal tunnel syndrome of right wrist G56.01 Arthritis of right acromioclavicular joint M19.011 Cervical myelopathy with cervical radiculopathy M47.12 Tendonitis of long head of biceps brachii of right shoulder M75.21 Rotator cuff tear, right M75.101 Bursitis of right shoulder ~11/2019 M75.51 Adhesive capsulitis of right shoulder ~11/2019 M75.01 Right anterior shoulder pain M25.511 Spondylosis of lumbar region without myelopathy or radiculopathy M47.816 Medical History Medical History GERD (gastroesophageal reflux disease) Neuropathy Depression Cataracts, bilateral Spinal stenosis of lumbar region with radiculopathy Hypothyroidism Migraine headache without aura Hyperlipidemia Hypertension Medical History Comments:: Pt. reports an occasional flutter in her chest which makes her feel faint, last episode was 3-4 months Surgical History Surgical History Status post right rotator cuff repair S/P left knee arthroscopy S/P bunionectomy left Tonsillectomy section Abdominal hysterectomy ACDF C3-4 and C5-T1; Dr. De La Paz 2016-Spinal fusion with plate Tobacco Smoking/Tobacco Use Status: Former Tobacco Use Alcohol Alcohol Intake: current Alcohol intake frequency: holidays/special occasions only Alcohol type: wine and hard liquor Substance Use Substance use: Never Substance use type: does not use Details: alcohol: t-2, one drink Vital Signs and Lab Results Vital Signs Most Recent Vital Signs in EMR: Most Recent Vital Signs Temp Pulse Resp BP Pulse Ox 36.6 C 65 18 148/78 H 95 05/21/23 06:24 05/21/23 06:24 05/21/23 06:24 05/21/23 06:24 05/21/23 06:24 Lab Results Blood Type / Crossmatch: No Data to Display Complete Blood Count: White Blood Count 9.93 10^3/uL (4.4-10.8) 05/13/23 14:20 Red Blood Count 4.72 10^6/uL (3.93-5.22) 05/13/23 14:20 Hemoglobin 14.1 g/dL (11.2-15.7) 05/13/23 14:20 Hematocrit 44.6 % (36.0-46.0) 05/13/23 14:20 Platelet Count 396 10^3/uL (130-400) 05/13/23 14:20 Complete Metabolic Panel: Sodium 139 mmol/L (136-145) 05/13/23 14:20 Potassium 3.7 mmol/L (3.5-5.1) 05/13/23 14:20 Chloride 102 mmol/L (98-107) 05/13/23 14:20 Carbon Dioxide 28.1 mmol/L (21.0-32.0) 05/13/23 14:20 BUN 18 mg/dL (7-18) 05/13/23 14:20 Creatinine 0.9 mg/dL (0.55-1.02) 05/13/23 14:20 Est GFR (CKD-EPI 2020) 68.77 (mL/min/1.73m2) 05/13/23 14:20 Calcium 9.6 mg/dL (8.5-10.1) 05/13/23 14:20 Glucose 90 mg/dL (74-106) 05/13/23 14:20 Liver Function Panel: No Data to Display Coagulation Panel: No Data to Display Cardiac Panel: No Data to Display Arterial Blood Gas: No Data to Display Venous Blood Gas: No Data to Display Pancreas Panel: No Data to Display Thyroid Panel: No Data to Display Infectious Disease: No Data to Display Blood Cultures: No Data to Display Toxicology Panel: No Data to Display Anesthesia Assessment and Plan Anesthesia History Personal History: No History of Anesthesia Complications Family History: No Family History of Anesthesia Complications Exercise Tolerance Exercise Tolerance: Metabolic Equivalents<4 Pertinent Negatives Pertinent Negatives: No Symptoms of GERD, No Major Cardiovascular Symptoms or Complaints, No Major Pulmonary Symptoms or Complaints and No History of CVA/TIA Cardiac & Pulmonary Exam Cardiac Exam: Normal S1/S2 Heart Sounds Pulmonary Exam: Clear Bilateral Breath Sounds Implantable Cardiac Device Does patient have a Pacemaker or an ICD?: No Airway Exam Known Difficult Airway: No Mallampati Class: 3 Mouth Opening: Normal (> 3cm) Thyromental Distance: Greater than 3 cm Neck Range of Motion: Limited ROM (good extension, limited side to side, c ervical fusion) Neck Circumference: Thick Teeth Condition: Normal Dentition ASA Classification ASA Score: ASA 3 Emergency Case?: No NPO Status NPO Status: NPO Clears >2 hours, Solids >8 hours Anesthesia Plan Resuscitation Status: Full Code Anesthesia Technique: General Anesthesia Airway Planned: Endotracheal Tube Pain Management: Surgeon and patient request nerve block Monitors Used: Standard Monitors
--- NOTE | 2023-05-21 07:22 | DSE_ITS ---
Date of service: 05/21/23 Time of Service: 07:31 DS: Diagnosis Discharge Diagnosis (1) Degenerative joint disease of right knee: Status: Chronic Discharge Plan Disposition Patient Disposition: Home Condition: Good Discharge Details Reason For Visit: Right knee DJD Attending Provider: Adolfo Patel Primary Care Provider: Laura Vargas V Home Meds and New Rx's Prescriptions: New celecoxib [Celebrex] 200 mg capsule 200 mg PO BID PRNQty: 60 0RF Rx Instructions: Take one tablet twice daily for pain and inflammation aspirin 81 mg tablet,delayed release (DR/EC) 81 mg PO BID 30 Days Qty: 60 0RF acetaminophen 500 mg tablet 1,000 mg PO Q8H PRN Qty: 90 0RF Rx Instructions: Take two tablets up to every 8 hours as needed for pain dexamethasone 4 mg tablet 4 mg PO DAILY Qty: 2 0RF Rx Instructions: Take one tablet once daily for two days docusate sodium [Colace] 100 mg capsule 100 mg PO BID Qty: 30 0RF oxycodone 5 mg tablet 5 mg PO Q4H PRNQty: 18 0RF Rx Instructions: Take one tablet up to every 4 hours as needed for severe postoperative pain Continued levothyroxine 100 mcg capsule 100 mcg PO DAILY omeprazole 20 MG capsule,delayed release(DR/EC) 20 mg PO DAILY gabapentin 300 mg capsule 300 mg PO QHS rosuvastatin 20 mg tablet 20 mg PO DAILY nabumetone 500 mg tablet 500 mg PO BID PRN lisinopril 20 MG tablet 20 mg PO DAILY citalopram 20 MG tablet 1 tab PO DAILY calcium phos,dibas-vitamin D3 77-400 mg-unit tablet 1 tab PO DAILY Discontinued naproxen 250 mg tablet 250 - 500 mg PO BID PRN (Reason: Moderate pain or swelling) Qty: 60 0RF Patient Comments: 500 mg Discharge Instructions Additional Instructions: Total Knee Discharge Instructions Activity: The most important activity is to walk and to work on gentle motion (both flexion and extension). You should try to take short walks a few times a day. It is important that when resting you work on keeping the knee straight. Avoid putting a pillow behind the knee as this will encourage flexion. Work on range of motion exercises as provided by Physical Therapy. - Start outpatient physical therapy within 2 weeks. - You should wear the WAGNER hose on both legs for 2 weeks. You may remove these at night. You may also use any compression sock in place of the WAGNER hose. - Utilize [employer] to review exercises, see videos on exercises and obtain basic information pertaining to your surgery and your recovery. Dressing: Remove the Shahriar wrap by 2 days after your surgery and put on the WAGNER stocking given to you from the hospital. Keep the surgical dressing (underneath the SHAHRIAR wrap) in place for at least one week. After the first week it may be removed and replaced with light gauze and tape or nothing. The wound and dressing may get wet after 3 days but avoid soaking the dressing or otherwise it will need to be changed. Many people prefer covering the dressing with cling wrap (saran wrap) to minimize it from getting soaked. If it gets wet, just pat dry. If it starts to peel off then it will need to be changed. Medications: - You should take Tylenol and anti-inflammatory Celebrex as your primary pain control medications. If the Celebrex is too expensive or not covered, please call the office for another alternative (Advil/Ibuprofen or Naproxen/Aleve) - You have been prescribed a stronger pain medication Oxycodone for breakthrough pain, take as needed as prescribed. - You take a stomach acid reduction agent Omeprazole at baseline - continue with this medication to help reduce stomach acid and reflux. - You take Gabapentin to take at night for restlessness and nerve pain - continue with this medication. - You will be taking Aspirin 81mg twice a day for DVT prevention unless instructed otherwise. - You have also been prescribed Decadron to take to control post-operative nausea and pain. You will start this tomorrow. - If you have constipation you should take Colace (which has been prescribed) or Miralax (which is available [id number]). It takes most people 3-4 days to have a bowel movement. Follow-up: 2 weeks If you have any acute concerns or questions, please do not hesitate to contact the office at [phone]. You may contact Dr. Patel with any questions after hours through the hospital at [phone] or on his cell phone at [phone]. Stand Alone Forms: Anesthesia Discharge Inst., [place].Nerve Block Instructions, Julius Farley ([facility]) Referrals: Adolfo Patel MD [ [facility] STAFF PHYSICIAN] - 06/03/23 11:15 am Equipment/Supplies: Walker Activity:: Elevate Remove Dressings/Wound Care:: Do Not Remove Shower/Bathe:: Cover Diet:: As Tolerated Discharge Orders Discharge Orders: Discharge Order (Routine); Ordered 05/21/23 Ordered By: Kadie Crowe DS: Summary Time Spent with Patient providing and/or coordinating discharge services: Less than 30 minutes Status at Discharge Functional status at discharge: uses cane/walker Overall status at discharge: patient is progressing back to baseline Mental Status: mental status grossly normal Speech and Movement: speech and movement normal Mood: congruent mood Affect: normal affect Exam Psych Mental Status: mental status grossly normal Speech and Movement: speech and movement normal Mood: congruent mood Affect: normal affect DS: Data Vitals/I&O Vitals and I&O: Vital Signs Temperature 97.9 F 05/21/23 06:24 Pulse 65 05/21/23 06:24 Pulse Rhythm Regular 05/21/23 06:24 Respiratory Rate 18 05/21/23 06:24 Respiratory Depth Normal 05/21/23 06:24 Blood Pressure 148/78 H 05/21/23 06:24 Pulse Oximetry 95 05/21/23 06:24 Oxygen Delivery Method Room Air 05/21/23 06:24 Oxygen Flow Rate 0 05/21/23 06:24 Pain Level 3 05/21/23 06:24 Intake & Output 05/20/23 05/20/23 05/21/23 11:59 23:59 11:59 Weight 187 lb 0.008 oz 184 lb 15.485 oz PFSH All Active Problems Degenerative joint disease of right hip (Chronic) Degenerative joint disease of right knee (Chronic) Anxiety and depression (Chronic) Prediabetes (Acute) Ulnar neuropathy at elbow of right upper extremity (Acute) Carpal tunnel syndrome of right wrist (Acute) Arthritis of right acromioclavicular joint (Acute) Cervical myelopathy with cervical radiculopathy (Acute) Tendonitis of long head of biceps brachii of right shoulder (Acute) Rotator cuff tear, right (Acute) Bursitis of right shoulder (Acute ~11/2019) Adhesive capsulitis of right shoulder (Acute ~11/2019) Right anterior shoulder pain (Acute) Spondylosis of lumbar region without myelopathy or radiculopathy (Chronic) Medical History GERD (gastroesophageal reflux disease) Neuropathy Depression Cataracts, bilateral Spinal stenosis of lumbar region with radiculopathy Hypothyroidism Migraine headache without aura Hyperlipidemia Hypertension Surgical History Status post right rotator cuff repair S/P left knee arthroscopy S/P bunionectomy left Tonsillectomy section Abdominal hysterectomy ACDF C3-4 and C5-T1; Dr. 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
--- NOTE | 2023-05-21 07:37 | W.ANESNERVE ---
Nerve Block Single Injection Procedure Date and Time Date Performed: 05/21/23 Procedure Start: 07:24 Location Where Procedure Performed Procedure Location: Day Surgery Unit Reason Performed: Postoperative Analgesia Requesting Provider: Adolfo Patel Timeout Performed Timeout Performed: Yes Monitoring Used ECG, Blood Pressure, SpO2 and See EMR for corresponding vital signs Sterility Sterility: Hand Hygiene, Surgical Cap, Surgical Mask, Sterile Gloves, Sterile Drape/Sheet and Chlorhexidine Sedation Given During Procedure Sedation Given (Indicate Dose Given): Versed IV Dose:: 2 mg Patient Mental Status Patient Mental Status: Sedate with meaningful communication Nerve Block 1st Nerve Block: Laterality: Right Block Type: Adductor Canal Ultrasound Image Saved?: Yes Needle / Catheter Used: 100mm SonoPlex II Local Anesthetic Bolus (Indicate Dose Given): Lidocaine used for local infiltration of skin, Injected in 3-5ml increments after negative blood aspiration and Bupivacaine 0.25% Dose:: 20 ml Additives (Indicate Dose Given): None Ultrasound: Sterile probe cover and gel used Nerve Stimulator: Not Used Paresthesia: None Procedure Tolerated: No Complications and Patient tolerated well Procedure Outcome: Successful Performed By: Carmen Espinosa
[2023-05-21] MEDS: ceFAZolin 2 GM/50 ML BAG IVPB (07:49)
--- NOTE | 2023-05-21 09:21 | W.PM.OP ---
Date of service: 05/21/23 Time of Service: 08:00 Operative Note Operative Note DATE OF PROCEDURE: 05/21/23 PRE-OP DIAGNOSIS: Right Knee Osteoarthritis POST-OP DIAGNOSIS: same PROCEDURE: Right Total Knee Replacement SURGEON: Adolfo Patel SECURITY CONTROL ROOM OFFICER: Kadie Crowe ANESTHESIA TYPE: General LMA/ETT Refer to Anesthesia Record ESTIMATED BLOOD LOSS: 200 PATHOLOGY: none sent TOURNIQUET TIME: 0 COMPLICATIONS: None Patient was transported to: PACU Patient's condition: stable Implants: 1. Depuy Attune Cementless Cruciate Retaining Femoral Component, Size 6 Narrow 2. Depuy Attune Cementless Fixed Bearing Tibial Component, Size 5 3. Depuy Attune 6x6 CR/FB Poly 4. Depuy Attune Patellar Component, Size 32 Indications: I have seen Mattie in clinic for symptoms of knee arthritis, confirmed with radiographic findings. She has exhausted nonoperative methods and was having significant limitations in daily function and desired better function and less pain. I discussed the technical details of a knee replacement. I explained the risks of the procedure to include, but not limited to, bleeding, infection, pain, stiffness, fracture, damage to nerves and vessels, damage to muscles and tendons, loosening, need for repeat procedure, blood clot and cardiopulmonary demise. Despite these risks, Mattie elected to proceed. Findings: There was significant signs of arthritis throughout the knee involving both medial and lateral compartments as well as the patella with multiple loose fragments of bone around the periphery of the patella. There were 2 large loose bodies. Procedure Description: Mattie was greeted in the preoperative holding area where the correct side was identified and marked. The consent was reviewed with the patient and signed. The history and physical was updated. All questions were answered. Preoperative medications were administered: Acetaminophen 1000mg, Celebrex 400mg, and Gabapentin 300mg. An adductor canal block was then administered by the anesthesia team in the PACU. Mattie was taken back to the operating room. A general anesthetic was then administered. The patient was placed into the supine position on the operating room table. A nonsterile tourniquet was placed high onto the leg but only used for cementing. Posts were placed for positioning during the procedure. All bony prominences were well padded. Prophylactic antibiotics in the form of Cefazolin were administered. 1g of Tranxemic Acid was given intravenously within 30 minutes of incision. The right leg was then prepped with Chloraprep and draped in a standard fashion with impervious stockinette. A second prep with Chloraprep was performed prior to application of Iodine impregnated skin protection. A timeout to confirm correct identity, side and site, procedure, allergies, anesthesia, and medical concerns was performed. With the knee in some flexion, a midline incision was made overlying the knee. Full thickness skin flaps were raised once the extensor mechanism was encountered. These were raised medially and laterally. Any bleeding was controlled with electrocautery. Once the extensor mechanism was fully exposed, a medial parapatellar arthrotomy was performed in a flexed position. All bleeding from the arthrotomy and the geniculate arteries was coagulated. A medial subperiosteal peel was performed with electrocautery to the midcoronal plane. The fat pad was removed while keeping the patellar tendon protected. The anterior distal femur synovium was removed for later visualization. The ACL and PCL were resected and the anterior horn of the lateral meniscus was transected. The knee was then flexed with the patella everted. Osteophytes from the tibia and the femur were removed. There were multiple loose fragments adjacent the patella which were also removed. 2 large loose bodies were also extracted. Using a step drill, and based on preoperative templating, the femoral canal was entered. This was done with a step drill without any difficulty. The intramedullary distal femoral cut guide was inserted, set to a 5 degree valgus cut and 9mm cut thickness. The distal femoral cut guide was then held in position and pinned. With the soft tissues protected, the distal cut was performed. This was passed over a few times to ensure a planar cut. I then turned attention to the tibia. The extramedullary guide was placed onto the leg. The distal aspect was slid medial to adjust for position of center of ankle and stay in line with shaft of the tibia. Approximately 3-5 degrees of posterior slope was kept in the proximal cutting guide. The center of the guide was aligned with the PCL. The stylus was used to assess cut thickness. Medial and lateral sides were fairly equally involved. A cut of about 6 mm was taken out of both. This was then held in position and pinned into place with 2 additional pins and a cross pin for stability. The medial and lateral collateral ligaments were protected and the cut was performed. With this completed, it was assessed and noted to be of appropriate dimensions. The guide was removed. A spacer block was inserted and the knee was brought into extension. The 6mm spacer block provided full extension, without hyperextension and with stability of both the medial and lateral collateral ligaments was assessed. The pins from the femur and the tibia were then removed. The distal femur was then sized. The anterior stylus was placed onto the lateral ridge of the anterior femur. This indicated a size 6 narrow femur. The external rotation of the guide was adjusted to 0 degrees to match the epicondylar axis, perpendicular to [place]?s line. The 4-in-1 cutting guide was the placed. The posterior medial femur cut was evaluated and appeared of good thickness. The spacer block was inserted underneath the cutting guide and stability was confirmed in 90 degrees of flexion. An arlene wing was used to confirm appropriate position of the anterior cut to avoid notching. This cutting guide was ensured to be flush on the cut surface and then pinned into place with headed pins. While protecting the soft tissues, quad tendon, and collateral ligaments, the anterior and posterior cuts were performed with a saw. The central two pins were removed and the posterior and anterior chamfers were cut next. The notch-cutting guide was placed. This was pinned to lateralize the femoral component as much as possible while keeping it flush on the cut surface. This was then pinned into position. A reciprocating saw was used to make the notch cut. A rasp smoothed the cut surfaces. The medial and lateral menisci were removed. A trial femoral component was then inserted, impacted down to the cut surfaces, and the lug holes were drilled. A provisional trial tibial component was placed and the knee was brought through range of motion. There was noted to be excellent extension and flexion. There was no significant instability. The patella was tracking without thumbs. A size 6mm polyethylene component provided the best range of motion and stability with less than 2mm gapping with medial and lateral stress and full extension without significant hyperextension. The tibial cut surface was fully exposed. The tibia was then sized as a 5. The tibia had been previously marked during trialing to correspond to the center of the tibial component to help with rotation. The trial was aligned to this taniya, approximately rotated to the medial 1/3rd of the tibial tubercle. The trial was pinned into place. The tibia was prepared with a reamer and a keel punch and lug holes. The knee was then brought into extension and the patella was measured as 21mm. Using the patellar clamp and cut guide, this was resected to a flat surface with at least 13mm of thickness remaining. The size 32 patella fit the best. This was oriented and then clamped into position. The lugs were drilled. The trial components were removed. The final components were opened on the back table. The periosteal and capsular tissues, especially posteriorly, around the knee were then systematically injected with a periarticular cocktail consisting of 246mg of Ropivacaine, 0.5mg of Epinephrine, 0.08mg of Clonidine, and 30mg of Ketorolac, diluted to 100cc. On the back table, with the implants opened, the cement was mixed. One batch of high viscosity cement was prepared with vacuum assistance. After the cement was ready a small amount was placed on the cut surface of the patella and the patellar button was clamped into position and held. While the cement was hardening, the cementless knee components were placed. Starting with the tibial component, the tibia was subluxed anteriorly and the lug holes of the component were lined up. The tibia was then impacted with an impactor and mallet until the tibial component was in contact with the tibia. The final polyethylene component was inserted. Then, the femoral component was inserted. The lug holes were aligned and the component was impacted into position. The knee was irrigated with Surgiphor Betadine solution. This was allowed to sit in the knee for 3 minutes and then it was irrigated out with saline. After the cement had finally cured, approximately 15min, the clamp was removed from the patella and the knee was taken through range of motion. The patella was tracking with a no-thumbs technique. The capsule was then reapproximated with a No. 1 Vicryl at multiple locations. The capsule was finally closed with a No. 2 Stratafix, barbed suture. The second dosing of 1g TXA was started. Deep tissues were then reapproximated with 0 Vicryl and 2-0 Vicryl. The skin was closed with a running 3-0 Monocryl in a subcuticular fashion. This was reinforced with skin glue. A Mepilex silver dressing was applied along with a [id number] ANAI wrap. A CryoCuff was applied. Mattie was transferred to the hospital bed without difficulty an suffering no apparent complication. Mattie has a good prognosis. Physical therapy will start today and without restrictions, weight-bearing as tolerated. Aspirin 81mg BID will be used for DVT prophylaxis.
[2023-05-21] MEDS: oxyCODONE 5 MG TAB PO (10:51)
--- NOTE | 2023-05-21 11:39 | PT.INIE ---
PT Notes Visit Reasons: Right knee DJD Physical Therapy Day Surgery Initial Evaluation Date: 05/21/2023 Referring Doctor: MANSI Knight PT Orders: PT CONSULT: S/P Ortho Surgery Precautions: WBAT on the R LE with AD. Patient Profile/Admitting Diagnosis: Shanon is a 72-year-old female with degenerative joint disease of the right knee and is status post right total knee arthroplasty on postoperative day 0. PMHX: All Active Problems (Updated 03/18/23 @ 11:57 by Kadie Crowe) Degenerative joint disease of right hip (Chronic) Degenerative joint disease of right knee (Chronic) Anxiety and depression (Chronic) Prediabetes (Acute) Spondylosis of lumbar region without myelopathy or radiculopathy (Chronic) Rotator cuff tear, right (Acute) Tendonitis of long head of biceps brachii of right shoulder (Acute) Arthritis of right acromioclavicular joint (Acute) Carpal tunnel syndrome of right wrist (Acute) Ulnar neuropathy at elbow of right upper extremity (Acute) Cervical myelopathy with cervical radiculopathy (Acute) Bursitis of right shoulder (Acute ~11/2019) Adhesive capsulitis of right shoulder (Acute ~11/2019) Right anterior shoulder pain (Acute) Medical History (Updated 03/18/23 @ 11:57 by Kadie Crowe) Cataracts, bilateral Depression GERD (gastroesophageal reflux disease) Hyperlipidemia Hypertension Hypothyroidism Migraine headache without aura Neuropathy Spinal stenosis of lumbar region with radiculopathy Surgical History (Updated 03/18/23 @ 11:58 by Kadie Crowe) Abdominal hysterectomy ACDF C3-4 and C5-T1; Dr. De La Paz 2016 section S/P bunionectomy left S/P left knee arthroscopy Tonsillectomy Social History/Home Situation: Lives with in a private home with 12 steps to enter with rails on both sides. Independent with all aspects of ADLs prior to surgery without using assistive device although has had increasing difficulty with weight bearing due to pain on the right knee. Equipment Owned/DME: None Subjective: Reports 2/10 pain in the right knee at rest and with weight bearing. Denies headache, chest pain, and lightheadedness throughout session. Per nurse Jenna patient has been given general anesthesia and has been given Oxycodone about half an hour prior to arrival of PT. Objective: General Observation: Resting in bed. ANAI wraps to right LE. Cryocuff to right knee. TEDS to left leg. Mental Status: Alert and oriented x 4 Pain: As above ROM: Right Lower Extremity: Hip flexion WFL. Hip abduction WFL. Knee flexion 20 degrees to 100 degrees. Knee extension -20 degrees. Ankle dorsiflexion WFL. Ankle plantarflexion WFL. Left Lower Extremity: Hip flexion WFL. Hip abduction WFL. Knee flexion WFL. Ankle dorsiflexion WFL. Ankle plantarflexion WFL. Strength: Right Lower Extremity: Hip flexors 4/5. Hip abductors 4/5. Knee flexors 3-/5. Knee extensors 3-/5. Ankle dorsiflexors 5/5. Ankle plantarflexors 5/5. Left Lower Extremity:Hip flexors 5/5. Hip abductors 5/5. Knee flexors 5/5. Knee extensors 5/5. Ankle dorsiflexors 5/5. Ankle plantarflexors 5/5. Sensation: Intact as to pain and light pressure in bilateral lower extremities Bed Mobility/Transfers: Minimal verbal cueing provided for safe gait pattern, limb advancement, and AD management Supine to sit standby assist Sit to stand contact-guard assist with FWW Stand to sit standby assist with FWW Bed to chair standby assist with FWW Gait: Facilitated safe and correct performance of a level surface ambulation covering a distance of 150 feet with reciprocal step through gait pattern requiring only standby assist with use of front-wheeled walker with report of 2/10 pain in the right knee. Minimal verbal cueing provided for limb advancement, hand placement, AD management, and posture. Nurse West providing wheelchair follow for safety. Stairs: Guided patient with safe and correct negotiation of 9 x 4 inch steps and 6 x 6 inch steps while holding onto bilateral rails with step to gait pattern requiring minimal verbal cueing for increased knee bending at each ascent on the right side. Balance: Static Sitting: Normal Dynamic Sitting: Normal Static Standing: Fair Dynamic Standing: Fair Special Tests: Mobility Limitations Standardized Measure [facility] 6 clicks Basic Mobility Inpatient Short Form: Raw Score: 24 CMS Score: 0% deficit Informed Consent/Education: Patient instructed in purpose of PT consult. Packet containing TKA exercise protocol has been given to patient. Education and training on initial set of exercises that can be done at home have been completed with patient. Trained patient with correct performance of exercises below to maximize motor control, joint flexibility, soft tissue extensibility of the R knee musculature: Access Code: [email or web address] URL: [email or web address] Date: 05/21/2023 Prepared by: Nasreen Bello Exercises - Supine Quad Set - 1 x daily - 7 x weekly - 1 sets - 10 reps - 5 hold - Supine Heel Slide - 1 x daily - 7 x weekly - 1 sets - 10 reps - 5 hold - Supine Ankle Pumps - 1 x daily - 7 x weekly - 1 sets - 10 reps - 5 hold - Small Range Straight Leg Raise - 1 x daily - 7 x weekly - 1 sets - 10 reps - 5 hold - Seated March - 1 x daily - 7 x weekly - 1 sets - 10 reps - 5 hold Assessment: Patient requires use of a front wheeled walker for all mobility ADL performance to maximize independence and reduce fall risk. Patient presents with clinical signs and symptoms consistent with current/admitting diagnoses that have resulted to mobility limitations, gait instability, generalized weakness, and impairment of motor control as demonstrated by the following impairment level findings: 1. Decreased strength to R knee major muscle groups 2. Impaired standing balance 3. Limitation of joint range of motion in R knee Impairments are contributing to the following functional limitations: 1. Inability to safely ambulate without assistive device 2. Increase completion time for mobility ADL performance 3. Increased fall risk Patient is assessed as a 14935 moderate complexity based on the following: History: 72-year-old female with impairment level findings, functional limitations, and past medical history as indicated above Examination: Demonstrable impairment in strength, balance, and mobility level with underlying impairments and functional limitations as documented above Presentation: Evolving Decision Makin moderate complexity Goals: N/A. PT evaluation and 1-2 treatment sessions only for functional mobility training using recommended AD and for HEP instruction. Plan of Care/Treatment Plan: N/A. PT evaluation and 1-2 treatment session only for functional mobility training using recommended AD and for HEP instruction. DISCHARGE RECOMMENDATIONS: Home when medically cleared by orthopedic surgeon. Recommend outpatient PT services in order to optimize functional mobility outcomes and facilitate return to independent community ambulation without an assistive device. TREATMENT CODE/TIME: 84121 x 20 minutes for 1 unit, 95291 x 19 minutes for 1 unit beginning at 11:39 AM. Thank you for the opportunity to participate in the care of this patient. Nasreen Bello PT, DPT, CLT [facility] [place], [place]
--- NOTE | 2023-05-21 15:00 | W.ANESPOSTOP ---
Postoperative Evaluation Date, Time and Location Date Performed: 05/21/23 Time Performed: 13:03 Patient Location: Day Surgery Unit Vital Signs Most Recent Imported Vital Signs: Most Recent Vital Signs Temp Pulse Resp BP Pulse Ox 36.5 C 81 18 122/78 98 05/21/23 12:30 05/21/23 12:30 05/21/23 12:30 05/21/23 12:30 05/21/23 12:30 Pain Score Most Recent Pain Score: Most Recent Pain Score Pain Level 0 05/21/23 12:30 Assessment Mental Status: Awake (Alert & Oriented to Patient Baseline) Airway and Respiratory Function: Patent airway with normal (patient baseline) respiratory exam Cardiovascular Function: Hemodynamically Stable Hydration Status: Adequately Hydrated Nausea & Vomiting: No Nausea or Vomiting Pain: Pt. Denies Any Pain Peripheral Nerve Block: Regional nerve block not resolved at time of post operative discharge
== END 2023-05-21 13:10 | disposition home or self-care (01) ==
PROVIDERS: PCP Family Medicine; Visit Provider Student in an Organized Health Care Education/Training Program
PROC: (CPT 27447; principal; 2023-05-21 07:45)
DX: M17.11 Unilateral primary osteoarthritis, right knee (principal); K21.9 Gastro-esophageal reflux disease without esophagitis; I10 Essential (primary) hypertension; E78.5 Hyperlipidemia, unspecified; Z79.899 Other long term (current) drug therapy
CPT/HCPCS: 27447; 76942; 97162; 97530; J0690; J1100; J2001; J2250; J2405; J2704; J3010

== ENCOUNTER 2023-06-03 12:07 | Outpatient (CLI) | payer OTHER, SELFPAY ==
--- NOTE | 2023-06-03 11:50 | DI.RAD_ITS ---
Exam(s) XR KNEE RT 1V EXAM: XR KNEE RT 1V CLINICAL HISTORY: 1ST POST OP S/P R TKA. TECHNIQUE: 2D digital imaging was performed of the right knee. One views obtained. Lateral views w ere obtained. COMPARISON: CR XR KNEE RT 1V from 05/13/2023 FINDINGS: The examination was reviewed in conjunction with the leg length examination from the same day. There are postsurgical changes of a right total knee replacement. No suspicious lucencies are seen in or about the orthopedic hardware. IMPRESSION: Right total knee replacement. DATA REPOSITORY: RADIATION DOSE DELIVERED:
--- NOTE | 2023-06-03 12:00 | DI.RAD_ITS ---
Exam(s) XR STANDING ALIGNMENT EXAM: XR STANDING ALIGNMENT CLINICAL HISTORY: 1ST POST OP S/P R TKA. TECHNIQUE: 2D digital imaging was performed. Five images were obtained. COMPARISON: CR XR STANDING ALIGNMENT from 05/13/2023 CR XR KNEE RT 1V from 06/03/2023 FINDINGS: BONES: The hips are well maintained. There are postsurgical changes of a right total knee replacemen t. The orthopedic hardware appears in good position. No lucencies are seen in or about the orthoped ic hardware. Mild degenerative changes are seen in the left knee with joint space narrowing and oste ophytes present. The ankles are well maintained.There is no significant leg length discrepancy. SOFT TISSUE: Normal. IMPRESSION: 1. Right total knee replacement. 2. Mild degenerative changes of the left knee. DATA REPOSITORY: RADIATION DOSE DELIVERED:
== END 2023-06-03 12:08 | disposition home or self-care (01) ==
LOC: DIORS 12:07
PROVIDERS: PCP Family Medicine; Referring Provider Family Medicine; Visit Provider Student in an Organized Health Care Education/Training Program
DX: Z96.651 Presence of right artificial knee joint (principal); Z47.1 Aftercare following joint replacement surgery
CPT/HCPCS: 73560; 77073

== ENCOUNTER → 2023-07-01 10:57 | Outpatient (BNVA) | payer OTHER, SELFPAY | PROVIDERS: PCP Family Medicine | DX: Z47.1 Aftercare following joint replacement surgery (principal); Z96.651 Presence of right artificial knee joint ==

== ENCOUNTER 2023-07-31 18:55 | Outpatient (REF) | payer OTHER, SELFPAY ==
[2023-07-31 20:22] LABS: Hemoglobin A1C 5.5 % (<5.7)
[2023-07-31 20:30] LABS: ALT 25 U/L (14-59); AST 25 U/L (15-37); Albumin 3.9 g/dL (3.4-5.0); Alkaline Phosphatase 101 U/L (46-116); Anion Gap 8.3 mmol/L (3-11); BUN 14 mg/dL (7-18); Bilirubin, Total 0.3 mg/dL (0.2-1.0); CO2 27.7 mmol/L (21.0-32.0); CREATININE 0.8 mg/dL (0.55-1.02); Calcium 9.8 mg/dL (8.5-10.1); Calculated LDL 96 mg/dL (<100); Chloride 103 mmol/L (98-107); Cholesterol 172 mg/dL (<200); Estimated GFR 78.72 (mL/min/1.73m2); Glucose 95 mg/dL (74-106); HDL Cholesterol 56 mg/dL (40-60); Potassium 3.8 mmol/L (3.5-5.1); Sodium 139 mmol/L (136-145); TSH 1.15 uIU/mL (0.36-3.74); Total Protein 8.1 g/dL (6.4-8.2); Triglyceride 103 mg/dL (<150)
[2023-07-31 21:03] LABS: FREE T4 1.23 ng/dL (0.76-1.46)
== END 2023-07-31 18:56 | disposition home or self-care (01) ==
LOC: NCHCN 18:55
PROVIDERS: PCP Family Medicine; Referring Provider Physician Assistant Medical; Visit Provider Physician Assistant Medical
DX: E78.5 Hyperlipidemia, unspecified (principal); E03.9 Hypothyroidism, unspecified; R73.03 Prediabetes
CPT/HCPCS: 80053; 80061; 83036; 84439; 84443

== ENCOUNTER → 2023-08-12 10:39 | Outpatient (BNVA) | payer OTHER, SELFPAY | PROVIDERS: PCP Family Medicine; Referring Provider Family Medicine; Visit Provider Student in an Organized Health Care Education/Training Program | DX: Z47.1 Aftercare following joint replacement surgery (principal); Z96.651 Presence of right artificial knee joint ==

== ENCOUNTER 2023-08-30 08:02 | Outpatient (CLI) | payer OTHER, SELFPAY | END 2023-08-30 08:03 | disposition home or self-care (01) | PROVIDERS: PCP Family Medicine; Visit Provider Physician Assistant Medical | DX: R00.2 Palpitations (principal) | CPT/HCPCS: 93246 ==

== ENCOUNTER → 2023-09-16 01:00 | Outpatient (CLI) | payer OTHER, SELFPAY ==
--- NOTE | 2023-09-16 | ETT_ITS ---
APPROVED REPORT Exam: Exercise Treadmill Patient Location: Out-Patient Room/Bed: Stress Nurse: Ronna Hanson RN Ordering Provider:JUAN ATKINSON, Contact Number: [phone] BMI: 30.28 Baseline Rhythm: Sinus Rhythm Comment: PACs Indications: chest pain Medical History Medical History: GERD, Depression, Hypothyroidism, HLD, HTN, migraine, preDM Cardiac Medications: Rosuvastatin, omeprazole, nabumetone, lisinopril, levothyroxine, citalopram Allergies: Arthur, oxycodone Cardiac Risk Factors: Family Hx, HTN, HLD, preDM, former smoker Previous Cardiac Procedures: stress test 1998 Pretest Chest Pain Characteristics: None Exercise History: Sedentary Physical Disabilities: Knees Lung Sounds: Clear to auscultation Heart Sounds: Regular Stress Test Details Test: Exercise stress testing was performed using a Dylon protocol. Rest Stress HR Resting HR Supine: 66 bpm Max Heart Rate (APMHR): 149 bpm Resting HR Standin bpm Target HR (85% APMHR): 127 bpm Max HR Achieved: 136 bpm % of APMHR: 91 Recovery HR: 75 bpm HR response to stress: Normal HR response to stress BP Resting BP Supine: 148/88 mmHg Resting BP Standin/80 mmHg Max BP: 200/94 mmHg Recovery BP: 142/84 mmHg BP response to stress: Normal blood pressure response to stress. ECG Resting ECG: Sinus Rhythm Ectopy: PACs Stress ECG: Sinus Tachycardia ST Change: No significant ST segment changes noted Arrhythmia: APC's Recovery ECG: Sinus Rhythm Recovery ST Change: No significant ST segment changes noted Recovery Arrhythmia: APC Clinical Reason for Termination: Fatigue Stress Symptoms: None Exercise duration: 4 min06 sec Highest Stage Reached: Stage 2: 2.5 mph at 12% grade. Exercise capacity: 5.96 METs Rate Pressure Product: 41480 Stress ECG Conclusion 1. Resting EKG showed low voltage 2. Patient exercised on Dylon protocol and completed a workload of 5.96 METS 3. Normal heart rate and blood pressure response to exercise. Patient achieved 91% predicted heart r ate for age 4. There was no electrocardiographic evidence of myocardial ischemia 5. There were no dysrhythmias Stress Test Summary STAGE Time (mins) Speed (mph) Grade (%) HR BP SpO2 SYMPTOMS METS Supine 66 148/88 Standing 66 138/80 98 1 3 1.7 10 124 154/78 4.5 1 min recovery 105 200/94 98 3 min recovery 77 154/90 6 min recovery 75 142/84
== END ==
PROVIDERS: PCP Family Medicine; Visit Provider Physician Assistant Medical
DX: R07.9 Chest pain, unspecified (principal)
CPT/HCPCS: 93016; 93018; 93017

== ENCOUNTER 2023-09-23 08:24 | Outpatient (CLI) | payer OTHER, SELFPAY ==
--- NOTE | 2023-09-23 09:12 | W.CARDEVENT ---
Date of service: 09/23/23 Time of Service: 09:12 Cardiac Event Recorder Referring Provider:: Deborah Shah Indications:: Palpitations Cardiac Event Note: This is a cardiac event recorder. Patient was monitored for 13 days and 9 hours Rhythm throughout was sinus. Average heart rate was 71. Minimum was 43, maximum 149 There were very rare ventricular ectopic beats There were rare atrial premature beats. Self-limited atrial runs occurred . These were all less than 10 beats in duration There was no atrial fibrillation, no high-grade AV block, no pauses greater than 3 seconds Symptoms reported had no correlation to any dysrhythmia
== END 2023-09-23 08:25 | disposition home or self-care (01) ==
LOC: CARDOPNVT 08:24
PROVIDERS: PCP Family Medicine; Visit Provider Internal Medicine Cardiovascular Disease
DX: R00.2 Palpitations (principal); I49.1 Atrial premature depolarization
CPT/HCPCS: 93248

== ENCOUNTER 2024-03-02 03:32 | Outpatient (CLI) | payer OTHER, SELFPAY ==
--- NOTE | 2024-03-02 | DI.US_ITS ---
APPROVED REPORT EXAM: Comprehensive 2D, Doppler, and color-flow Echocardiogram Patient Location: Out-Patient Director Of Direct Marketing: Carmela Goodson RDCS (AE) Indications: Palpitations, Presyncope Other Information Study Quality: Adequate Conclusion Mild concentric left ventricular hypertrophy. Ejection fraction is 58%. Wall motion is normal Normal right ventricular size and function Both atria are normal in size Doppler suggests a small patent foramen ovale Mitral annular calcification Estimated right ventricular systolic pressure is 23 mmHg Wall motion Left Ventricle The left ventricle is normal size. The left ventricular systolic function is normal. The left ventric ular ejection fraction is within the normal range. Mild concentric left ventricular hypertrophy. Ther e is normal LV segmental wall motion. There is no ventricular septal defect visualized. LVEF is 58%. Right Ventricle The right ventricle is normal size. The right ventricular systolic function is normal. Atria The left atrium size is normal. The right atrium size is normal. Doppler suggests left to right inter atrial shunt. Aortic Valve The aortic valve is normal in structure. Aortic valve is trileaflet. There is no aortic valvular sten osis. No aortic regurgitation is present. Mitral Valve Moderate mitral annular calcification. No evidence of mitral valve stenosis. Trace mitral regurgitati on. Tricuspid Valve The tricuspid valve is normal in structure. There is no tricuspid valve stenosis. Mild tricuspid regu rgitation. The RVSP is 23.5 mmHg. Pulmonic Valve The pulmonary valve is normal in structure. There is no pulmonic valvular stenosis. Trace pulmonic re gurgitation. Great Vessels The aortic root is normal in size. The ascending aorta is normal in size. Aortic arch is normal in ca liber. IVC is normal in size and collapses >50% with inspiration. Pericardium There is no pericardial effusion. 2D Dimensions IVSD d PLAX 1.10 cm F: 0.6-1.0 Ao Root d 3.13 cm F: 2.7 - 3.3 LVPW d PLAX 1.10 cm F: 0.6 - 1.0 Ao Asc Diam d 3.14 cm F: 2.3 - 3.1 LVID d PLAX 3.90 cm F: 3.8 - 5.2 LVDs 2.70 cm F: 2.2 - 3.5 LV EF Teichholz 59.6 % FS 31.17 % LV EDV (Teich) 65.9 mL LV ESV (Teich) 26.6 mL M-Mode TAPSE 2.97 cm (M/F) >1.7 Auto EF LV EDV A4C 77.3 mL LV EDV A2C 74.5 mL LV EDV BP 75.2 mL LV ESV A4C 32.9 mL LV ESV A2C 31.0 mL LV ESV BP 32.3 mL LVEF(%) A4C 57.5 % LVEF(%) A2C 58.3 % LVEF(%) BP 57.1 % LV SV A4C 44.5 ml LV SV A2C 43.5 ml LV SV BP 42.9 ml LV CO A4C 2.0 L/min LV CO A2C 2.5 L/min LV CO BP 2.3 L/min HR A4C 45.69 BPM HR A2C 56.87 BPM LV EDV Index (BP) LA Volume LA Length A4C 5.0 cm LA Length A2C 5.5 cm LA Area A4C s 17.60 cm2 LA Area A2C s 17.76 cm2 LA Vol A4C A-L 52.35 mL LA Vol A2C A-L 48.60 mL LA Vol Biplane A-L 52.8 mL LA Vol/BSA A4C A-L LA Vol/BSA A2C A-L LA Vol/BSA BP A-L 27.8 mL/m2 LA Vol A4C MOD 49.9 mL LA Vol A2C MOD 46.3 mL LA Vol BP MOD 50.3 mL RA Volume RA Area A4C 15.9 cm2 RA ESV A4C (A-L) 41.6mL RA Vol/BSA A4C A-L RA Length A4C 5.2 cm RA ESV A4C (MOD) 39.7mL LV Diastology MV E' medial 0.062 (>0.07 m/s) MV E Vmax 0.85 (0.4-1.3 m/s) MV E/E' MED 13.63 (<14) MV A Vmax 0.90 (0.4-1.3 m/s) MV E' lateral 0.087 (>0.1 m/s) E/A Ratio 0.9 MV E/E' LAT 9.73 (<14) MV E' Average 0.075 m/s MV E/E'(average) 11.36 Aortic Valve AoV Vmax 1.19 m/s LVOT Vmax 1.01 m/s AoV Peak Grad 5.7 mmHg LVOT Peak Grad 4.1 mmHg AoV Area (Vmax) 2.63 cm2 LVOT VTI 0.224 m AoV VTI 0.319 m LVOT Mean Grad 2.0 mmHg AoV Mean Umang. 0.87 m/s LVOT SV 69.80 mL AoV Mean Grad 3.4 mmHg LVOT Diam s 1.95 cm AoV Area (VTI) 2.19 cm2 AV Regurg Peak Gr. 5.68 mmHg Velocity Ratio 0.85 Mitral Valve MV DT 175 (160-240 msec) MV Vmax TIPS 0.91 m/s MV Mean Grad 1.0 (<2mmHg) MV VTI 0.280 m Pulmonary Valve PV Vmax 1.10 (0.5-1.5 m/s) RVOT Vmax 0.71 m/s PV Peak Grad 5.0 mmHg RVOT Peak Gr. 2.0 mmHg PV Mean Umang 0.81 m/s RVOT VTI 0.174 m PV Mean Grad 2.8 mmHg RVOT Mean Gr. 1.2 mmHg Tricuspid Valve RA Pressure 3.00 mmHg TR Vmax 2.26 m/s TV S' 0.14 m/s TR Peak Grad 20.4 mmHg RVSP (TR) 23.5 mmHg
--- NOTE | 2024-03-02 | DI.DEXA_ITS ---
Exam(s) XR DEXA BONE DENSITY W/WO YAZMIN EXAM: XR DEXA BONE DENSITY W/WO YAZMIN CLINICAL HISTORY: Asymptomatic postmenopausal state, Z78.0 TECHNIQUE: Routine DEXA evaluation of the lumbar spine, hip, or forearm. COMPARISON: No exams were available for comparison FINDINGS: Performed on a Hologic unit. Lateral image: No compression fracture evident. Lumbar Spine total T-score: 0.5 Hip total T-score:-1.9 Independent reading at the level of the femoral neck yields T-score of -2.1 Forearm total T-score: -3.5 IMPRESSION: Bone mineral density measures in the osteoporosis range the wrist. Fracture risk is high at this lev el. Bone mineral density measures in the osteopenia range for the hip implying moderate fracture ris k at this level. Bone mineral density is in the normal range for the lumbar spine. Note: Any spine fracture indicates 5x risk for subsequent spine fracture and 2x risk for subsequent h ip fracture. World Health Organization criteria for BMD interpretation classify patients: Normal...... T- Score at or above -1.0 Osteopenic... T- Score between -1.0 and -2.5 Osteoporosis... T-Score at or below -2.5
--- NOTE | 2024-03-02 09:50 | DI.MAMMO_ITS ---
Exam(s) MAMMO SCREENING EXAM: MAMMO SCREENING CLINICAL HISTORY: Screening, Z12.31. TECHNIQUE: Bilateral full field digital CC and MLO mammographic images were obtained with 3D tomosyn thesis and utilizing computer aided detection (CAD). COMPARISON: Prior mammograms were reviewed. FINDINGS: There has been no significant change in the appearance and distribution of the fibroglandular tissue. There are no new spiculated masses nor malignant appearing microcalcification groups. There is no significant architectural distortion nor skin thickening-retraction. IMPRESSION: No radiographic evidence of malignancy. BI-RADS Category 1 - Negative Breast Density - Category B - Scattered areas of fibroglandular density Breast density Category C or D implies that the patient has dense breast tissue. Dense breast tissue can make it harder to find cancer on a mammogram. Dense breast tissue is also associated with an incr eased risk of breast cancer. This information about the result of the mammogram report was provided to the patient to raise their awareness. Use this report when you speak with the patient about their risks for breast cancer, which includes their family history. At that time, you may recommend additional screening tests (Ultrasoun d or MRI) as these tests may add significant information. A negative radiographic report should not delay biopsy if a dominant or clinically suspicious mass is present. Up to ten percent of cancers are not identified on mammography. A negative report may reinforce clinical impression. Adenosis and dense breasts may obscure an underlying neoplasm. False positive reports average 6 to 10%. Patient will receive a letter notifying them of these results.
== END 2024-03-02 03:52 ==
LOC: DI 03:33
PROVIDERS: PCP Family Medicine; Visit Provider Physician Assistant Medical
DX: R00.2 Palpitations (principal); Z78.0 Asymptomatic menopausal state
CPT/HCPCS: 77063; 77067; 77080; 93306

== ENCOUNTER 2024-04-24 10:46 | Outpatient (CLI) | payer OTHER, SELFPAY ==
--- NOTE | 2024-04-24 11:00 | RT.EKG_ITS ---
APPROVED REPORT Exam: Resting ECG Reason for Exam: fluttering heart Patient Location: O HR:64 bpm ECG Measurements Heart Rate 64 AXIS AZ 149 P 40 QRSd 98 QRS 5 QT 439 T 16 QTc 453 Conclusion Sinus rhythm...normal P axis, V-rate 50- 99 Normal Electrocardiogram
== END 2024-04-24 10:47 | disposition home or self-care (01) ==
LOC: DI.CARD 11:05
PROVIDERS: PCP Family Medicine; Referring Provider Family Medicine; Visit Provider Internal Medicine Cardiovascular Disease
DX: I49.8 Other specified cardiac arrhythmias (principal)
CPT/HCPCS: 93010

== ENCOUNTER → 2024-04-24 10:46 | Outpatient (BNVA) | payer OTHER, SELFPAY | PROVIDERS: PCP Family Medicine; Referring Provider Family Medicine; Visit Provider Internal Medicine Cardiovascular Disease | DX: I49.8 Other specified cardiac arrhythmias (principal) | CPT/HCPCS: 93005; 99214 ==

== ENCOUNTER 2024-05-25 15:26 | Outpatient (CLI) | payer OTHER, SELFPAY ==
--- NOTE | 2024-05-25 11:17 | DI.RAD_ITS ---
Exam(s) XR KNEE RT 2V AP,LAT EXAM: XR KNEE RT 2V AP,LAT CLINICAL HISTORY: ANNUAL F/U R TKA. TECHNIQUE: 2D digital imaging was performed. COMPARISON: CR XR STANDING ALIGNMENT from 05/13/2023 CR XR KNEE RT 1V from 05/13/2023 CR XR KNEE RT 1V from 06/03/2023 FINDINGS: Two views CIS stable appearance of the components of the right knee prosthesis. No fracture or loosening evide nt. The lateral view there is a 4 millimeter calcific density off the superior aspect of the patella now evident. IMPRESSION: Stable satisfactory appearance of the prosthesis components. 4 mm calcification now seen between the upper aspect of the posterior patella and the femoral compone nt. DATA REPOSITORY: RADIATION DOSE DELIVERED:
== END 2024-05-25 15:27 | disposition home or self-care (01) ==
LOC: DIORS 15:26
PROVIDERS: PCP Family Medicine; Visit Provider Student in an Organized Health Care Education/Training Program
DX: Z47.1 Aftercare following joint replacement surgery (principal); Z96.651 Presence of right artificial knee joint
CPT/HCPCS: 99213; 73560

== ENCOUNTER 2024-06-01 01:21 | Outpatient (CLI) | payer OTHER, SELFPAY ==
--- NOTE | 2024-06-01 | DI.RAD_ITS ---
Exam(s) XR LUMBAR SPINE COMPLETE EXAM: XR LUMBAR SPINE COMPLETE CLINICAL HISTORY: LBP, M54.50. TECHNIQUE: 2D digital imaging was performed. COMPARISON: Prior DEXA scan February 2024 was reviewed. FINDINGS: Five views There is no evidence of fracture of the lumbar vertebrae. Chronic mild wedging of T11 noted. There is multilevel advanced disc space narrowing throughout the lumbar spine. Also vacuum phenomena seen within the significantly diminished L4-5 and L5-S1 disc spaces. There is mild retrolisthesis o f L2 upon L3. Multilevel moderate facet arthropathy. There is mild degenerative scoliosis. Sacroil iac joints appear un remarkable. IMPRESSION: Multilevel chronic degenerative disc disease and degenerative facet arthropathy. Other findings as above. No acute fractures evident. DATA REPOSITORY: RADIATION DOSE DELIVERED:
== END 2024-06-01 01:41 ==
LOC: DI 01:21
PROVIDERS: PCP Family Medicine; Visit Provider Physician Assistant Medical
DX: M51.360 Other intervertebral disc degeneration, lumbar region with discogenic back pain only (principal)
CPT/HCPCS: 72110

== ENCOUNTER 2024-07-29 02:36 | Outpatient (CLI) | payer MEDICARE, SELFPAY ==
--- NOTE | 2024-07-29 10:20 | DI.RAD_ITS ---
Exam(s) XR FOOT RT COMPLETE EXAM: XR FOOT RT COMPLETE CLINICAL HISTORY: right foot pain,m79.671. TECHNIQUE: 2D digital imaging was performed. COMPARISON: No exams were available for comparison FINDINGS: 3 views There is no evidence of fracture or diastasis of the Lisfranc joint. There are moderate degenerative changes in the great toe metatarsophalangeal joint. Other MTP joints appear unremarkable. There ar e mild degenerative changes in the 3rd tarsometatarsal joint. Degenerative subarticular cysts is als o noted in the base of the 4th metatarsal. A large inferior calcaneal spur is noted. A small enthes ophyte on the posterior calcaneus/Achilles insertion site is noted. Bone density normal. No significant osseous lesions. No radiopaque foreign body. IMPRESSION: Moderate degenerative changes in the great toe metatarsophalangeal joint. Inferior calcaneal spur. DATA REPOSITORY: RADIATION DOSE DELIVERED:
== END 2024-07-29 02:56 ==
LOC: DI 02:37
PROVIDERS: PCP Family Medicine; Visit Provider Podiatrist
DX: M77.31 Calcaneal spur, right foot (principal); M19.071 Primary osteoarthritis, right ankle and foot
CPT/HCPCS: 29540; 73630

== ENCOUNTER 2024-08-12 02:06 | Outpatient (CLI) | payer MEDICARE, SELFPAY ==
--- NOTE | 2024-08-12 09:15 | DI.MRI_ITS ---
Exam(s) MR LUMBAR SPINE WO EXAM: MR LUMBAR SPINE WO CLINICAL HISTORY: LOW BACK PAIN, M54.50, CHRONIC MILD WEDGING T11, DISC SPACE NARROWING. TECHNIQUE: Multiplanar multisequence MRI of the Lumbar spine was performed. COMPARISON: MR MRI - LUMBAR SPINE WO CONTRAST from 12/27/2015 FINDINGS: Bones: The last intervertebral disc space is designated the L5/S1 level for the numbering purpose of this ex amination. The vertebral body heights are well maintained. Alignment: Mild biconvex degenerative scoliosis. The marrow signal characteristics are unremarkable. Cord: The conus tip ends at the T12 level. It is of normal size and signal intensity. T11-12: Moderate loss of disc height. Prominent osteophytes projecting centrally into the canal, cau sing moderate central canal stenosis, similar to prior. T12-L1: No focal disc herniation is present. No central spinal canal stenosis.No neural foraminal st enosis. L1-2:Small endplate osteophytes. Mild disc bulging. Mild facet degenerative changes. No focal disc herniation is present. No central spinal canal stenosis.Right neural foraminal stenosis. L2-3:Moderate loss of disc height. And endplate osteophytes which project posteriorly. Facet degene rative changes and ligamentous hypertrophy. No focal disc herniation is present. Moderate central s evans canal stenosis. this appears more severe when compared with the prior exam. Severe bilateraln o neural foraminal stenosis. L3-4: Mild loss of disc height. Concentric disc bulging. Facet degenerative changes and ligamentous hypertrophy.No focal disc herniation is present. [id number]-xs-szitzxwz central spinal canal stenosis.Se lisandro right and moderate left neural foraminal stenosis. L4-5:Loss of disc height eccentric toward the left where there are prominent osteophytes. Facet dege nerative changes and ligamentous hypertrophy also present, greater on the left. No focal disc hernia tion is present. Mild central spinal canal stenosis.Severe left neural foraminal stenosis. L5-S1: Moderate loss of disc height. Small endplate osteophytes. Mild concentric disc bulging. Mil d facet degenerative changes.No focal disc herniation is present. No central spinal canal stenosis. Moderate to severe bilateral neural foraminal stenosis. The visualized SI joints and sacrum are unremarkable. Soft tissues: The paraspinal soft tissues are unremarkable. IMPRESSION: Multilevel degenerative disc changes and facet degenerative changes. There are prominent endplate osteophytes projecting into the central canal T11-12 causing moderate ce ntral canal stenosis and compression of the cord, unchanged from prior. Prominent posterior osteophytes also present at L2-3, causing moderate central canal stenosis. Multilevel bilateral neural foraminal narrowing. DATA REPOSITORY:
== END 2024-08-12 02:26 ==
LOC: DI 02:06
PROVIDERS: PCP Family Medicine; Visit Provider Physician Assistant Medical
DX: M48.02 Spinal stenosis, cervical region (principal); M99.61 Osseous and subluxation stenosis of intervertebral foramina of cervical region
CPT/HCPCS: 72148

== ENCOUNTER 2024-09-15 01:11 | Outpatient (CLI) | payer MEDICARE, SELFPAY ==
--- NOTE | 2024-09-15 | DI.MRI_ITS ---
Exam(s) MR CERVICAL SPINE WO EXAM: MR CERVICAL SPINE WO CLINICAL HISTORY: G54.2 Cervical root disorders, not elsewhere classified TECHNIQUE: Multiplanar multisequence MRI of the cervical spine was performed without intravenous con trast. COMPARISON: CR XR CERVICAL SP BARKER TRAUMA 2-3V from 02/17/2020 MR MR CERVICAL SPINE WO from 03/11/2020 FINDINGS: BONES: Vertebral body heights are maintained. There is a disc fusion at C3-C4. There is anterior cer vical disc fusion from C5 through T1. There is straightening of the normal cervical lordosis. Disc f usion is seen at C5-6, C6-7 and C7-T1. Bone marrow signal intensity is within normal limits. CERVICAL CORD: Craniovertebral junction is unremarkable. The cervical cord is normal size and signal intensity. SOFT TISSUES: Unremarkable. C2-3: No disc herniation or bulge is identified. No significant central spinal canal or neural forami nal stenosis. C3-4: No disc herniation or bulge is identified. No significant central spinal canal or neural forami nal stenosis C4-5: There is prominence of the osteophyte disc complex causing narrowing of the central spinal zenaida l. The AP diameter is 7 mm. There is flattening of the anterior aspect of the spinal cord. There i s normal signal in the spinal cord. Degenerative changes of the uncovertebral joints are noted. The re is resultant moderately severe bilateral neural foraminal stenosis. C5-6: No disc herniation or bulge is identified. There are prominent posterior osteophytes causing na rrowing of the central spinal canal and flattening the anterior spinal cord. There is normal signal in the spinal cord. The AP diameter of the spinal canal at this level is 7 mm. Uncovertebral joint hypertrophy is also noted causing bilateral neural foraminal stenosis. C6-7: No disc herniation or bulge is identified. No significant central spinal canal or neural forami nal stenosis C7-T1: There is a diffuse disc bulge asymmetric to the right with some extension into the right neura l foramen. No significant central spinal canal stenosis is seen. There is moderate right neural for aminal stenosis and mild left neural foraminal stenosis. IMPRESSION: 1. Stable postsurgical changes with disc fusion at C3-C4, anterior cervical disc fusion from C5 throu gh T1. 2. Degenerative changes at C4-C5 causing central spinal canal and moderately severe bilateral neural foraminal stenosis. 3. Degenerative changes at C7-T1 causing bilateral neural foraminal stenosis, right greater than left . 4. There is normal signal in the spinal cord. DATA REPOSITORY:
== END 2024-09-15 01:31 ==
LOC: DI 01:11
PROVIDERS: PCP Family Medicine; Visit Provider Family Medicine
DX: M99.61 Osseous and subluxation stenosis of intervertebral foramina of cervical region; M50.021 Cervical disc disorder at C4-C5 level with myelopathy
CPT/HCPCS: 72141

== ENCOUNTER → 2024-09-24 13:40 | Outpatient (BNVA) | payer MEDICARE, SELFPAY | PROVIDERS: PCP Family Medicine; Referring Provider Family Medicine; Visit Provider Psychiatry & Neurology Neurology | DX: R29.898 Other symptoms and signs involving the musculoskeletal system (principal); H02.401 Unspecified ptosis of right eyelid; Z98.1 Arthrodesis status | CPT/HCPCS: 99215; G2212 ==

== ENCOUNTER 2024-10-16 01:34 | Outpatient (CLI) | payer MEDICARE, SELFPAY ==
--- NOTE | 2024-10-16 06:30 | DI.MRI_ITS ---
Exam(s) MR BRAIN WO EXAM: MR BRAIN WO CLINICAL HISTORY: R arm weakness, claw hand,r29.898 TECHNIQUE: Multiplanar multisequence MRI of the brain was performed. COMPARISON: No exams were available for comparison FINDINGS: VENTRICLES AND EXTRA AXIAL SPACES: Normal in size and morphology for the patient's age. MIDLINE SHIFT: None. CEREBRAL PARENCHYMA: No focus of restricted diffusion to suggest acute infarct. No space-occupying le harrison identified. Mild atrophy consistent with the patient's age. Mild scattered foci of high signal in the white matter consistent with sequela of chronic microvascular disease. BRAINSTEM/CEREBELLUM: Normal. VISUALIZED PARANASAL SINUSES: Clear. MASTOIDS:Clear. Vasculature: Normal flow void. PITUITARY GLAND: Unremarkable. ORBITS: Unremarkable. IMPRESSION: Unremarkable MRI of the brain. DATA REPOSITORY:
== END 2024-10-16 01:54 ==
LOC: DI 01:34
PROVIDERS: PCP Family Medicine; Visit Provider Psychiatry & Neurology Neurology
DX: R29.898 Other symptoms and signs involving the musculoskeletal system (principal)
CPT/HCPCS: 70551

== ENCOUNTER → 2024-10-22 09:10 | Outpatient (BNVA) | payer MEDICARE, SELFPAY | PROVIDERS: PCP Family Medicine; Referring Provider Family Medicine; Visit Provider Psychiatry & Neurology Neurology | DX: R29.898 Other symptoms and signs involving the musculoskeletal system (principal); G61.82 Multifocal motor neuropathy; H02.401 Unspecified ptosis of right eyelid | CPT/HCPCS: 95886; 95887; 95910; 99215 ==

== ENCOUNTER 2024-10-22 10:26 | Outpatient (CLI) | payer MEDICARE, SELFPAY ==
[2024-10-22 11:33] LABS: ESR 12 mm/hr (0-30)
[2024-10-22 11:49] LABS: Lab Add On Test DONE
[2024-10-22 12:04] LABS: C-Reactive Protein < 0.50 mg/dL (<or=0.5)
[2024-10-22 17:22] LABS: Rheumatoid Factor <8.6 IU/mL (<12.0)
[2024-10-23 13:30] LABS: ANA Interpretation Positive (Negative); ANA Titer Pattern 1:160 Homogeneous
[2024-11-03 09:03] LABS: Misc Referral (MAYO) See Comments
== END 2024-10-22 10:27 | disposition home or self-care (01) ==
LOC: LBO 10:27
PROVIDERS: PCP Family Medicine; Visit Provider Psychiatry & Neurology Neurology
DX: G61.82 Multifocal motor neuropathy (principal)
CPT/HCPCS: 85652; 83520; 86038; 86140; 86431

== ENCOUNTER 2024-11-24 01:33 | Outpatient (CLI) | payer MEDICARE, SELFPAY ==
--- NOTE | 2024-11-24 07:15 | DI.MRI_ITS ---
Exam(s) MR CHEST WO/W EXAM: MR CHEST WO/W CLINICAL HISTORY: ? R arm brachial plexopathy,RT ARM WEAKNESS,R29.898,G54.0 TECHNIQUE: Multiplanar multisequence MRI of the brachial plexus was performed on 1.5 trevor unit with both pre and post contrast injected sequences.. CONTRAST MATERIAL: IV Contrast: 17 ML of Dotarem contrast administered. COMPARISON: Recent cervical spine MRI study 09/15/2024 was reviewed. This patient has multilevel an terior fusions in the cervical spine. See that separate report. FINDINGS: NERVES: No obvious abnormalities in the visualized neural pathways of the right brachial plexus. SOFT TISSUES: No soft tissue masses nor fluid collections. There is disc herniation evident at C 4-5 level which is the non fused level between the 2 levels of fusion. This disc protrusion appears to indent the cervical spinal cord. There is significant centr al spinal canal stenosis at this level. There is also prominent posterior bony ridging at C5-6 level , left more than right and with spinal canal stenosis also evident at this level. OSSEOUS: Multilevel anterior cervical discectomies and fusion C3-4 and C5-T1 levels. There is bilateral vitaly inal stenosis noted which is most prominent at C4-5, C5-6, and C7-T1 levels, more prominent on the le ft side at these levels. There are osteoarthritic degenerative changes in the right shoulder glenohumeral joint and some degen erative changes evident in the ipsilateral AC joint and there is diminution of the subacromial space. There is suggestion of prior rotator cuff surgery in the right shoulder. IMPRESSION: No obvious findings in brachial plexus. Multilevel cervical fusions at C3-4 and C5-T1. However, there is posterior bony ridging and disc her niation at the non fused C4-5 level which results in significant spinal canal stenosis at this level and significantly indents the cervical spinal cord at this level. There is also spinal canal stenosi s at C5-6 level which is due to posterior bony ridging, more so left side than right side. DATA REPOSITORY:
[2024-11-24] MEDS: Normal Saline Flush 10 ML SYR IVP (14:04)
[2024-11-24] MEDS: Gadoterate meglumine 20 ML SYRINGE 17 ML IVP (14:04)
--- NOTE | 2024-11-24 16:33 | DI.VRAD_ITS ---
PROCEDURE INFORMATION: Exam: MR Chest Without and With Contrast; Brachial Plexus Exam date and time: 11/24/2024 1:23 PM Age: 74 years old Clinical indication: Numbness right hand; Prior surgery; Surgery date: 6+ months; Surgery type: Rtc 2019, c-spine 2015 TECHNIQUE: Imaging protocol: MR chest without and with intravenous contrast. Exam focused on the brachial plexus. Contrast material: DOTAREM; Contrast volume: 17 ml; Contrast route: INTRAVENOUS (IV); COMPARISON: MR CERVICAL SPINE WO 09/15/2024 10:10 AM FINDINGS: Nerves: Unremarkable visualized nerves and brachial plexus. No evidence of edema or mass lesion. Soft tissues: No significant subcutaneous soft tissue abnormality. Bones/joints: There is evidence of prior anterior discectomy and fusion of the C3-C4 and C5- T1. Bilateral neural foraminal narrowing noted most prominent at the C4-C5, C5-C6 and C7-T1 levels, greater on the left. Osteoarthritic degenerative changes noted in the right glenohumeral and acromioclavicular joints. IMPRESSION: 1. Unremarkable brachial plexus. 2. Cervical spine degenerative changes as described. Dictated and Authenticated by: Lou Hamlin MD. Orderin Yfn Contreras MD
== END 2024-11-24 01:53 ==
LOC: DI 01:33
PROVIDERS: PCP Family Medicine; Visit Provider Psychiatry & Neurology Neurology
DX: R29.898 Other symptoms and signs involving the musculoskeletal system (principal); G54.0 Brachial plexus disorders
CPT/HCPCS: 71552

== ENCOUNTER 2024-11-25 08:35 | Emergency (ER) | payer MEDICARE, SELFPAY ==
[2024-11-25] VITALS (7 sets, daily range): BP systolic 138–190; BP diastolic 77–114; PULSE 58–70; RESP 12–17; TEMP 36.9; O2SAT 94–99
--- NOTE | 2024-11-25 08:30 | RT.EKG_ITS ---
APPROVED REPORT Exam: Resting ECG Reason for Exam: L arm pain Patient Location: E HR:65 bpm ECG Measurements Heart Rate 65 AXIS TX 144 P 35 QRSd 91 QRS -12 QT 432 T 6 QTc 449 Conclusion Sinus rhythm...normal P axis, V-rate 60- 99 Inferior infarct, old...Q >35mS, II III aVF
--- NOTE | 2024-11-25 09:19 | ED.GENADUL_ITS ---
Discharge Plan Disposition Patient Disposition: Home Condition: Stable Discharge Details Clinical Impression: Nontraumatic pain of left shoulder Primary Care Provider: Laura Vargas V ED Provider: Chandrakant Greene Home Meds and New Rx's Prescriptions: Continued gabapentin 300 mg capsule 300 mg PO TID levothyroxine 100 mcg capsule 100 mcg PO DAILY omeprazole 20 MG capsule,delayed release(DR/EC) 20 mg PO DAILY rosuvastatin 20 mg tablet 20 mg PO DAILY propranolol 10 mg tablet 10 mg PO BID [id number]-dmy-eomy-FA-vit K-lut [Centrum Silver Women] 1 tab PO DAILY cyclobenzaprine 10 mg tablet 10 mg PO HS lisinopril 20 MG tablet 20 mg PO DAILY citalopram 20 MG tablet 1 tab PO DAILY calcium phos,dibas-vitamin D3 77-400 mg-unit tablet 1 tab PO DAILY acetaminophen 500 mg tablet 1,000 mg PO Q8H PRN Qty: 90 0RF Rx Instructions: Take two tablets up to every 8 hours as needed for pain Discharge Instructions Additional Instructions: Your lab work including 2 sets of cardiac enzymes did not show concerning findings at this time. Follow-up with your primary care provider within 1 to 2 weeks especially symptoms continue. If you feel significantly more ill or has new symptoms such as difficulty breathing return to the emergency department for reevaluation. HPI General Date/Time Provider Initiated Documentation: 11/25/24 08:37 . Limitations to Documentation: no limitations . Information obtained by: patient . History of Present Illness 74 year old F presents to the emergency department with the chief complaint of left shoulder pain, described as moderate, Quality is described as aching, Patient started experiencing this hour(s) (3) and it has been constant. No relieving factors improve symptom(s), No exacerbating factors reported . Patient notes no other symptoms.. Patient did receive the following treatments prior to arrival, none Related Data Home Medications ?Medication ?Instructions ?Recorded ?Confirmed lisinopril 20 mg tablet 20 mg PO DAILY 01/07/13 11/25/24 citalopram 20 mg tablet 1 tab PO DAILY 06/22/13 11/25/24 omeprazole 20 mg capsule,delayed 20 mg PO DAILY 10/25/15 11/25/24 release rosuvastatin 20 mg tablet 20 mg PO DAILY 11/06/22 11/25/24 levothyroxine 100 mcg capsule 100 mcg PO DAILY 05/13/23 11/25/24 calcium phosphate,dibasic 77 1 tab PO DAILY 05/20/23 11/25/24 mg-vitamin D3 400 unit tablet acetaminophen 500 mg tablet 1,000 mg (2 x 500 mg) PO Q8H PRN 05/21/23 11/25/24 pain #90 tabs propranolol 10 mg tablet 10 mg PO BID 03/16/24 11/25/24 cyclobenzaprine 10 mg tablet 10 mg PO HS 06/29/24 11/25/24 dhzjjmda-lxo-mqnw-FA-vit K-lut 1 tab PO DAILY 06/29/24 11/25/24 gabapentin 300 mg capsule 300 mg PO TID 09/22/24 11/25/24 Previous Rx's ?Medication ?Instructions ?Recorded acetaminophen 500 mg tablet 1,000 mg (2 x 500 mg) PO Q8H PRN 05/21/23 pain #90 tabs Allergies Allergy/AdvReac Type Severity Reaction Status Date / Time acetaminophen (From Percocet) Allergy Intermediate euphoria Verified 11/25/24 09:02 nickel Allergy Intermediate Skin Rash Verified 11/25/24 09:02 oxycodone Allergy Mild fearful of Verified 11/25/24 09:02 addiction General Stated Complaint: Orthopedic AUBREY: 3 Review of Systems All systems reviewed & are unremarkable except as noted in HPI and below Constitutional Constitutional: Denies chills, Denies fever(s) and Reports weakness Cardiovascular Cardiovascular: Denies chest pain and Denies dyspnea Respiratory Respiratory: Denies cough and Denies dyspnea Gastrointestinal Gastrointestinal: Denies abdominal pain, Denies nausea and Denies vomiting Neurologic Neurologic: Reports weakness Exam Const General: no acute distress Orientation: alert [facility] Head: normal to inspection Ears: external ears normal General nose exam: external nose normal Mouth: moist mucous membranes Eyes General: appearance normal, both eyes and all related structures Neck Neck: full ROM and no meningeal signs Resp Effort & Inspection: normal respiratory effort and able to speak in complete sentences Auscultation: clear to auscultation bilaterally Cardio Jugular venous pressure: no JVD Rate: regular rate Skin General skin exam: no rashes or lesions noted Neuro General: patient alert and patient oriented x3 Extrem General: full ROM and capillary refill normal Psych Mental Status: mental status grossly normal Course Vital Signs Vital signs: Vital Signs Pulse 63 11/25/24 08:48 Respiratory Rate 13 06/11/25 08:48 Blood Pressure 138/114 H 11/25/24 08:48 Pulse Oximetry 97 11/25/24 08:48 Temperature 36.9 C 11/25/24 08:53 Temperature Source Oral 11/25/24 08:53 Pulse 58 L 11/25/24 09:10 Pulse 58 L 11/25/24 09:10 Respiratory Rate 17 11/25/24 09:10 Blood Pressure 190/95 H 11/25/24 08:53 Blood Pressure Mean 128 11/25/24 08:49 Blood Pressure Position Sitting 11/25/24 08:53 Pulse Oximetry 94 11/25/24 09:10 Oxygen Delivery Method Room Air 11/25/24 08:53 Oxygen Flow Rate 0 11/25/24 08:53 Medical Decision Making 74-year-old female who is being evaluated by neurology for 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 Denies any fevers, chest pain, back pain, abdominal pain, vomiting. She has a mild headache but states she gets headaches frequently and this is not the worst of her life and is only mild. She is alert and oriented on arrival speaking clearly in no distress. She has reproducible tenderness to the left anterior shoulder. Clear lung sounds, soft nontender abdomen. She has palpable pulses in her left arm that are 2+ and has no swelling of the arm. Gi turner the nontraumatic shoulder pain that we will check troponins and also obtain x-rays of the shoulder and chest. She has no tearing back pain and pulses are equal bilaterally so I doubt dissection. No abdominal tenderness so I doubt intra abdominal pathology. She did have a brachial plexus MRI yesterday which incidentally showed a C4-C5 disc herniation that impinges on the spinal cord so her symptoms could be due to cervical radiculopathy. Will see if they can do a dedicated MRI C-spine today. X-rays show no acute findings, has degenerative joint disease on the shoulder x- ray. Labs including delta troponin negative do not feel a third troponin is indicated. Discussed results with her and she does not want to stay to have a MRI of her C-spine which can take a few hours. She feels well and for discharge and feels significantly better after lorazepam. She will follow-up with her PCP and return precautions given Differential Diagnosis Differential Diagnosis: ACS, cervical radiculopathy Medical Records Medical records reviewed: Yes I reviewed the patient's medical records. Lab Data Lab results reviewed: Yes I reviewed the patient's lab results. ECG Data Attestation: I personally reviewed and interpreted this ECG (s) as follows: Prior ECG tracings: available for review Interpretation: Sinus rhythm, rate of 65, no STEMI Quality:SDOH Health Related Social Needs: No Data to Display PFSH All Active Problems (Updated 11/25/24 @ 11:40 by Chandrakant Greene MD) Nontraumatic pain of left shoulder (Acute) Multifocal motor neuropathy (Acute) Ptosis (Acute) Right arm weakness (Acute) Hammertoe of right foot (Acute) Sprain of metatarsophalangeal joint of right lesser toe(s), initial encounter (Acute) Mechanical low back pain (Acute) Lumbar radiculopathy (Acute) Fluttering heart (Acute) History of total right knee replacement (Acute 05/21/23) Degenerative joint disease of right hip (Chronic) Anxiety and depression (Chronic) Prediabetes (Acute) Ulnar neuropathy at elbow of right upper extremity (Acute) Carpal tunnel syndrome of right wrist (Acute) Arthritis of right acromioclavicular joint (Acute) Cervical myelopathy with cervical radiculopathy (Acute) Tendonitis of long head of biceps brachii of right shoulder (Acute) Rotator cuff tear, right (Acute) Bursitis of right shoulder (Acute ~11/2019) Adhesive capsulitis of right shoulder (Acute ~11/2019) Right anterior shoulder pain (Acute) Spondylosis of lumbar region without myelopathy or radiculopathy (Chronic) Medical History Osteoarthritis Pain in joint of right knee Fatigue Dizziness Pain in thoracic spine Neck pain Blood in urine Urinary tract infectious disease Polyneuropathy Fracture, cervical vertebra GERD (gastroesophageal reflux disease) Neuropathy Depression Cataracts, bilateral Spinal stenosis of lumbar region with radiculopathy Hypothyroidism Migraine headache without aura Hyperlipidemia Hypertension Surgical History Acquired absence of both cervix and uterus S/P colonoscopy 2014 Status post right rotator cuff repair S/P left knee arthroscopy S/P bunionectomy left Tonsillectomy section Abdominal hysterectomy ACDF C3-4 and C5-T1; Dr. De La Paz 2016-Spinal fusion with plate Family History Mother , AGE 75 Hypertension Hyperlipidemia Heart disease Stroke Sister Hypothyroidism Lymphedema High urine 2,8-dihydroxyadenine determined by HPLC Brother High urine 2,8-dihydroxyadenine determined by HPLC Father CAD (coronary artery disease) Social History Smoking/Tobacco Use Status: Former Tobacco Use Quit Date: 06/17/07 Smoking risk assessment performed?: Yes Alcohol Intake: current Alcohol Intake frequency: holidays/special occasions only Alcohol type: wine and hard liquor Drug use: Never Substance use type: does not use Details: alcohol: t-2, one drink Household members: significant other Housing: apartment Number of Children: 3 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
[2024-11-25] MEDS: LORazepam 20 MG/10 ML VIAL IVP (09:25)
[2024-11-25] MEDS: Normal Saline Flush 10 ML SYR IVP ×2 (09:25→10:17)
[2024-11-25 09:31] LABS: Bilirubin Negative (Negative); Blood Trace-intact (Negative); Clarity Clear (Clear); Glucose Negative (Negative); Ketones Negative (Negative); Leukocyte Esterase Negative (Negative); Nitrite Negative (Negative); Urobilinogen 0.2 mg/dL (Up to 0.2); pH 7.5 (5-8)
[2024-11-25 09:31] LABS: Absolute Basophil Count 0.03 10^3/uL (0.0-0.2); Absolute Lymphocyte Count 1.29 10^3/uL (1.2-3.4); Absolute Neutrophil Count 1.76 10^3/uL (1.2-6.7); Basophils % 0.8 %; Eosinophils % 2.6 %; HCT 40.9 % (36.0-46.0); HGB 13.1 g/dL (11.2-15.7); Lymphocytes % 33.2 %; MCH 30.5 pg (27.0-33.0); MCV 95 fL (80-95); MPV 10.8 fL (8.0-11.0); Neutrophils % 45.4 %; Platelet Count 315 10^3/uL (130-400); RDW 12.5 % (11.7-14.6); RDW-SD 43.7 fL; WBC 3.88 10^3/uL (4.4-10.8)
[2024-11-25 09:42] LABS: WBC Negative HPF (0-5)
[2024-11-25 09:43] LABS: Bacteria Negative HPF (Negative); C & S Indicated? No; Casts Negative LPF (Negative); Crystals Negative HPF (Negative); Epithelial Cells Rare HPF (Negative); Mucus Negative (Negative); RBC 0-2 HPF (0-2)
[2024-11-25 09:56] LABS: ALT 23 U/L (14-59); AST 23 U/L (15-37); Albumin 3.3 g/dL (3.4-5.0); Alkaline Phosphatase 70 U/L (46-116); Anion Gap 7.8 mmol/L (3-11); BUN 11 mg/dL (7-18); Bilirubin, Total 0.4 mg/dL (0.2-1.0); CO2 27.2 mmol/L (21.0-32.0); CREATININE 0.7 mg/dL (0.55-1.02); Calcium 9.4 mg/dL (8.5-10.1); Chloride 105 mmol/L (98-107); Estimated GFR 91.83 (mL/min/1.73m2); Glucose 90 mg/dL (74-106); Lipase 34 U/L (<78); Magnesium 1.9 mg/dL (1.8-2.4); Potassium 4.1 mmol/L (3.5-5.1); Sodium 140 mmol/L (136-145); Total Protein 8.7 g/dL (6.4-8.2); Troponin I 11 ng/L (<or=51)
--- NOTE | 2024-11-25 10:01 | DI.RAD_ITS ---
Exam(s) XR SHOULDER LT COMPLETE 2+V EXAM: XR SHOULDER LT COMPLETE 2+V CLINICAL HISTORY: pain. TECHNIQUE: 2D digital imaging was performed of the left shoulder. Six images were obtained. AP, Gr ashey, Y-view and axillary views were obtained. COMPARISON: No exams were available for comparison FINDINGS: BONES: No acute fracture is present. No bony destructive lesion is seen. JOINTS: No dislocation present. There are mild degenerative changes seen at both the acromioclavicula r and glenohumeral joints. SOFT TISSUE: Normal. IMPRESSION: No acute abnormality. Mild degenerative changes of the shoulder. DATA REPOSITORY: RADIATION DOSE DELIVERED:
--- NOTE | 2024-11-25 10:01 | DI.RAD_ITS ---
Exam(s) XR CHEST 2V PA LATERAL EXAM: XR CHEST 2V PA LATERAL CLINICAL HISTORY: chest pain TECHNIQUE: 2D digital imaging was performed of the chest. Two images were obtained. PA and lateral views were obtained. COMPARISON: No exams were available for comparison FINDINGS: MEDIASTINUM: Normal. HEART: Normal. PULMONARY VASCULATURE: Normal. LUNGS: There is scarring or atelectasis in the left mid lung. No focal consolidating infiltrates are present. PLEURAL SPACE: No pleural effusion or pneumothorax. BONE:Within normal limits for the patient's age. There is anterior cervical fusion centered in the l ower cervical and upper thoracic spine. OTHER FINDINGS:Normal. IMPRESSION: No acute pulmonary findings. DATA REPOSITORY: RADIATION DOSE DELIVERED:
[2024-11-25] MEDS: Ondansetron 4 MG/2 ML VIAL IVP (10:17)
[2024-11-25 11:02] LABS: Troponin I 11 ng/L (<or=51)
== END 2024-11-25 11:52 | disposition home or self-care (01) ==
PROVIDERS: Emergency Provider Emergency Medicine; PCP Family Medicine
DX: M25.512 Pain in left shoulder (principal); I10 Essential (primary) hypertension; E78.5 Hyperlipidemia, unspecified
CPT/HCPCS: 36415; 80053; 83690; 93005; 96374; 96375; 99284; 71046; 73030; 81003; 81015; 83735; 84484; 85025; 93010; J2060; J2405

== ENCOUNTER 2024-11-30 00:35 | Outpatient (RCR) | payer MEDICARE, SELFPAY ==
[2024-11-23 08:14] VITALS: BP 114/76; PULSE 71; RESP 20; TEMP 36.2; O2SAT 98
[2024-11-23] MEDS: IMMUNE GLOBULIN 10 GM/100 ML BTL IVPB (08:18)
[2024-11-23] MEDS: Normal Saline Flush 10 ML SYR IVP (08:19)
[2024-11-23 08:40] VITALS: BP 108/73; PULSE 62; RESP 19; TEMP 36.3; O2SAT 94
[2024-11-23 08:59] VITALS: BP 119/80; PULSE 65; RESP 20; TEMP 36.3; O2SAT 96
[2024-11-23] MEDS: IMMUNE GLOBULIN 20 GM/200 ML BTL IVPB (09:09)
[2024-11-23 09:27] VITALS: BP 125/76; PULSE 57; RESP 20; TEMP 35.9; O2SAT 97
[2024-11-23 09:59] VITALS: BP 133/79; PULSE 55; RESP 20; TEMP 36.4; O2SAT 100
[2024-11-24 10:17] VITALS: BP 109/71; PULSE 64; RESP 20; TEMP 36.2; O2SAT 94
[2024-11-24] MEDS: IMMUNE GLOBULIN 10 GM/100 ML BTL IVPB (10:19)
[2024-11-24] MEDS: Normal Saline Flush 10 ML SYR IVP (10:19)
[2024-11-24 10:44] VITALS: BP 125/78; PULSE 57; RESP 20; TEMP 36.6; O2SAT 95
[2024-11-24 11:00] VITALS: BP 118/74; PULSE 56; RESP 19; TEMP 36; O2SAT 98
[2024-11-24] MEDS: IMMUNE GLOBULIN 20 GM/200 ML BTL IVPB (11:18)
[2024-11-24 11:28] LABS: CREATININE 0.7 mg/dL (0.55-1.02); Estimated GFR 91.83 (mL/min/1.73m2)
[2024-11-24 11:30] VITALS: BP 144/78; PULSE 57; RESP 18; TEMP 36; O2SAT 98
[2024-11-24 12:01] VITALS: BP 166/94; PULSE 56; RESP 19; TEMP 36.5; O2SAT 97
[2024-11-25] MEDS: IMMUNE GLOBULIN 10 GM/100 ML BTL IVPB (08:03)
[2024-11-25] MEDS: Normal Saline Flush 10 ML SYR IVP (08:03)
[2024-11-25 10:14] VITALS: BP 130/80; PULSE 67; RESP 20; TEMP 36.6; O2SAT 96
[2024-11-26] MEDS: IMMUNE GLOBULIN 10 GM/100 ML BTL IVPB (08:21)
[2024-11-26 08:32] VITALS: BP 133/83; PULSE 64; RESP 20; TEMP 36.6; O2SAT 95
[2024-11-26 08:46] VITALS: BP 120/81; PULSE 60; RESP 19; TEMP 36.7; O2SAT 97
[2024-11-26 09:10] VITALS: BP 117/76; PULSE 58; RESP 19; TEMP 36.8; O2SAT 92
[2024-11-26] MEDS: IMMUNE GLOBULIN 20 GM/200 ML BTL IVPB (09:22)
[2024-11-26 09:35] VITALS: BP 113/78; PULSE 55; RESP 20; TEMP 36.8; O2SAT 93
[2024-11-26 10:07] VITALS: BP 125/82; PULSE 55; RESP 20; TEMP 36.5; O2SAT 96
[2024-11-26 10:15] VITALS: BP 116/71; PULSE 65; RESP 20; TEMP 36.3; O2SAT 98
[2024-11-26] MEDS: Normal Saline Flush 10 ML SYR IVP (13:41)
[2024-11-27] MEDS: IMMUNE GLOBULIN 10 GM/100 ML BTL IVPB (10:09)
[2024-11-27] MEDS: Normal Saline Flush 10 ML SYR IVP (10:09)
[2024-11-27 10:14] VITALS: BP 123/83; PULSE 63; RESP 18; TEMP 36; O2SAT 97
[2024-11-27 10:27] LABS: CREATININE 0.8 mg/dL (0.55-1.02); Estimated GFR 78.24 (mL/min/1.73m2)
[2024-11-27 10:30] VITALS: BP 111/74; PULSE 58; RESP 18; TEMP 36; O2SAT 96
[2024-11-27 10:45] VITALS: BP 135/84; PULSE 60; RESP 18; TEMP 36; O2SAT 97
[2024-11-27] MEDS: IMMUNE GLOBULIN 20 GM/200 ML BTL IVPB (11:07)
[2024-11-27 11:17] VITALS: BP 139/89; PULSE 56; RESP 19; TEMP 35.9; O2SAT 97
[2024-11-27 11:45] VITALS: BP 166/87; PULSE 55; RESP 18; TEMP 36; O2SAT 98
== END 2024-12-14 23:59 | disposition home or self-care (01) ==
LOC: INF 00:35
PROVIDERS: PCP Family Medicine; Visit Provider Psychiatry & Neurology Neurology
DX: G61.82 Multifocal motor neuropathy (principal)
CPT/HCPCS: 36415; 96365; 96366; 82565; J1459

== ENCOUNTER 2024-12-25 00:48 | Outpatient (RCR) | payer MEDICARE, SELFPAY ==
[2024-12-21] MEDS: IMMUNE GLOBULIN 10 GM/100 ML BTL 3 GM IVPB (08:18)
[2024-12-21 08:21] VITALS: BP 134/89; PULSE 72; RESP 20; TEMP 36.4; O2SAT 96
[2024-12-21 08:40] VITALS: BP 124/85; PULSE 70; RESP 20; TEMP 36.4; O2SAT 97
[2024-12-21 08:50] VITALS: BP 156/86; PULSE 65; RESP 19; TEMP 36.4; O2SAT 96
[2024-12-21] MEDS: IMMUNE GLOBULIN 20 GM/200 ML BTL 3 GM IVPB (09:10)
[2024-12-21 09:25] VITALS: BP 131/80; PULSE 57; RESP 18; TEMP 36.4; O2SAT 98
[2024-12-21 09:50] VITALS: BP 142/89; PULSE 57; RESP 20; TEMP 36.7; O2SAT 96
[2024-12-21] MEDS: Normal Saline Flush 10 ML SYR IVP (10:16)
[2024-12-22] MEDS: Normal Saline Flush 10 ML SYR IVP (08:16)
[2024-12-22] MEDS: IMMUNE GLOBULIN 10 GM/100 ML BTL IVPB (08:16)
[2024-12-22 08:20] VITALS: BP 127/80; PULSE 55; RESP 17; TEMP 35.1; O2SAT 97
[2024-12-22 08:35] VITALS: BP 123/79; PULSE 61; RESP 18; TEMP 35.4; O2SAT 96
[2024-12-22 08:50] VITALS: BP 126/79; PULSE 57; RESP 18; TEMP 35.4; O2SAT 96
[2024-12-22 08:54] LABS: Estimated GFR 95.31 (mL/min/1.73m2)
[2024-12-22] MEDS: IMMUNE GLOBULIN 20 GM/200 ML BTL IVPB (09:15)
[2024-12-22 09:20] VITALS: BP 148/85; PULSE 56; RESP 17; TEMP 35.8; O2SAT 100
[2024-12-22 09:35] VITALS: BP 143/85; PULSE 59; RESP 17; TEMP 36.3; O2SAT 95
[2024-12-22 10:10] VITALS: BP 149/88; PULSE 58; RESP 18; TEMP 36; O2SAT 100
[2024-12-23 08:10] VITALS: BP 130/86; PULSE 66; RESP 20; TEMP 36.2; O2SAT 96
[2024-12-23] MEDS: IMMUNE GLOBULIN 10 GM/100 ML BTL 3 GM IVPB (08:20)
[2024-12-23 08:40] VITALS: BP 140/85; PULSE 62; RESP 20; TEMP 36.3; O2SAT 96
[2024-12-23 09:00] VITALS: BP 134/80; PULSE 66; RESP 20; TEMP 36.2; O2SAT 96
[2024-12-23] MEDS: IMMUNE GLOBULIN 20 GM/200 ML BTL IVPB (09:16)
[2024-12-23 09:30] VITALS: BP 115/70; PULSE 50; RESP 20; TEMP 36.1; O2SAT 97
[2024-12-23 10:00] VITALS: BP 160/84; PULSE 59; RESP 18; TEMP 35; O2SAT 96
[2024-12-24] MEDS: IMMUNE GLOBULIN 10 GM/100 ML BTL IVPB (08:02)
[2024-12-24] MEDS: Normal Saline Flush 10 ML SYR IVP (08:02)
[2024-12-24 08:08] VITALS: BP 165/96; PULSE 71; RESP 18; TEMP 36; O2SAT 98
[2024-12-24 08:25] VITALS: BP 144/86; PULSE 61; RESP 18; TEMP 35.5; O2SAT 97
[2024-12-24 08:41] VITALS: BP 136/85; PULSE 61; RESP 19; TEMP 36.3; O2SAT 95
[2024-12-24] MEDS: IMMUNE GLOBULIN 20 GM/200 ML BTL IVPB (09:04)
[2024-12-24 09:16] VITALS: BP 150/85; PULSE 60; RESP 19; TEMP 36.3; O2SAT 96
[2024-12-24 09:40] VITALS: BP 160/88; PULSE 54; RESP 18; TEMP 35.6; O2SAT 95
[2024-12-24 09:55] VITALS: BP 160/95; PULSE 57; RESP 18; TEMP 35.5; O2SAT 97
[2024-12-25 08:10] VITALS: BP 135/86; PULSE 73; RESP 20; TEMP 36.5; O2SAT 98
[2024-12-25] MEDS: IMMUNE GLOBULIN 10 GM/100 ML BTL 3 GM IVPB (08:13)
[2024-12-25 08:35] VITALS: BP 130/82; PULSE 68; RESP 19; TEMP 36.6; O2SAT 96
[2024-12-25 08:35] LABS: Estimated GFR 78.24 (mL/min/1.73m2)
[2024-12-25 08:52] VITALS: BP 132/89; PULSE 66; RESP 20; TEMP 36.5; O2SAT 97
[2024-12-25] MEDS: IMMUNE GLOBULIN 20 GM/200 ML BTL IVPB (09:06)
[2024-12-25 09:25] VITALS: BP 137/81; PULSE 63; RESP 18; TEMP 35.8; O2SAT 96
[2024-12-25 10:00] VITALS: BP 147/89; PULSE 61; RESP 20; TEMP 36.4; O2SAT 97
[2024-12-25] MEDS: Normal Saline Flush 10 ML SYR IVP (10:16)
== END 2025-01-14 23:59 | disposition home or self-care (01) ==
LOC: INF 00:48
PROVIDERS: PCP Family Medicine; Visit Provider Psychiatry & Neurology Neurology
DX: G61.82 Multifocal motor neuropathy (principal)
CPT/HCPCS: 36415; 96365; 96366; 82565; J1459

== ENCOUNTER → 2025-01-04 08:14 | Outpatient (BNVA) | payer MEDICARE, SELFPAY | PROVIDERS: PCP Family Medicine; Referring Provider Family Medicine; Visit Provider Psychiatry & Neurology Neurology | DX: G61.82 Multifocal motor neuropathy (principal); R29.898 Other symptoms and signs involving the musculoskeletal system; H02.401 Unspecified ptosis of right eyelid; M25.511 Pain in right shoulder; M47.12 Other spondylosis with myelopathy, cervical region; I10 Essential (primary) hypertension | CPT/HCPCS: 99214 ==

== ENCOUNTER 2025-01-19 03:30 | Outpatient (RCR) | payer MEDICARE, SELFPAY ==
[2025-01-18 08:23] VITALS: BP 149/94; PULSE 61; RESP 20; TEMP 36; O2SAT 100
[2025-01-18] MEDS: IMMUNE GLOBULIN 10 GM/100 ML BTL IVPB (08:33)
[2025-01-18] MEDS: Normal Saline Flush 10 ML SYR IVP (08:33)
[2025-01-18] MEDS: Acetaminophen 500 MG TAB (08:34)
[2025-01-18 08:57] VITALS: BP 145/92; PULSE 63; RESP 20; TEMP 36.4; O2SAT 97
[2025-01-18 09:18] VITALS: BP 135/86; PULSE 63; RESP 20; TEMP 36; O2SAT 96
[2025-01-18] MEDS: IMMUNE GLOBULIN 20 GM/200 ML BTL IVPB (09:21)
[2025-01-18 09:41] VITALS: BP 172/91; PULSE 58; RESP 20; TEMP 36.4; O2SAT 100
[2025-01-18 10:10] VITALS: BP 175/102; PULSE 54; RESP 20; TEMP 36.4; O2SAT 98
[2025-01-19 08:05] VITALS: BP 145/53; PULSE 67; RESP 18; TEMP 35.5; O2SAT 99
[2025-01-19] MEDS: Normal Saline Flush 10 ML SYR IVP (08:10)
[2025-01-19 08:41] LABS: Estimated GFR 91.83 (mL/min/1.73m2)
== END 2025-02-14 23:59 | disposition home or self-care (01) ==
LOC: INF 03:30
PROVIDERS: PCP Family Medicine; Visit Provider Psychiatry & Neurology Neurology
DX: G61.82 Multifocal motor neuropathy (principal)
CPT/HCPCS: 36415; 96365; 96366; 82565; J1459

== ENCOUNTER 2025-01-19 16:38 | Outpatient (REF) | payer MEDICARE, SELFPAY | END 2025-01-19 16:39 | disposition home or self-care (01) | LOC: NCHCN 16:38 | PROVIDERS: PCP Family Medicine; Visit Provider Family Medicine | DX: R30.0 Dysuria (principal) | CPT/HCPCS: 87086 ==